=== PATIENT | male | born 1950 | race Caucasian/White ===

== ENCOUNTER 2016-08-19 13:19 | Emergency (ER) | payer MEDICAID ==
[2016-07-26 13:53] VITALS: BMI 24.8
[~2016-08-19 13:19] MED LIST: ASPIRIN325 MG PO; BENADRYL25 MG PO; CELEXA40 MG PO; CIPROFLOXACIN750 MG PO; COREG 3.1253.125 MG PO; DOXYCYCLINE HY100 M2 PO; FARXIGA10 MG PO; FLAGYL500 MG PO; GLIPIZIDE10 MG PO; GLUCOPHAGE500 MG PO; K-TAB10 MEQ PO; LASIX20 MG PO; LEVAQUIN500 MG PO; LIPITOR20 MG PO; LISINOPRIL2.5 MG PO; OXYCODONE HCL5 MG PO; SANTYL30 GM TP; SEROQUEL25 MG PO; SEROQUEL50 MG PO; VANCOMYCIN H1 G/VIA1 IV
[2016-08-19 14:18] LABS: BASOPHILS 0.1 % (0.0-2.0); EOSINOPHILS 6.5 % (0-7); HEMATOCRIT 45.1 % (42.0-54.0); HEMOGLOBIN 14.4 g/dL (13.5-17.5); IMMATURE GRANULOCYTES 0.3 % (0-5); LYMPHOCYTES 19.4 % (15-50); MCH 30.5 pg (26.0-34.0); MCHC 31.9 g/dL (31.0-37.0); MCV 95.6 fL (80.0-100.0); MONOCYTES 8.7 % (2-11); PLATELET COUNT 158 10x3/uL (130-400); RBC 4.72 10x6/uL (4.20-6.10); RDW 13.1 % (11.5-14.5); WBC 7.9 10x3/uL (4.8-10.8)
[2016-08-19 14:31] LABS: ALBUMIN 4.2 g/dL (3.4-5.0); ANION GAP 12.7 mmol/L (8-16); BILIRUBIN - TOTAL 0.87 mg/dL (0.2-1.3); CALCIUM 9.5 mg/dL (8.5-10.1); CREATININE - SERUM 1.4 mg/dL (0.6-1.3); POTASSIUM - SERUM 4.7 mmol/L (3.5-5.1)
== END 2016-08-19 15:08 | disposition home or self-care (01) ==
LOC: D.ER 13:19
PROVIDERS: Family Medicine
DX: L03.115 Cellulitis of right lower limb (principal); E11.621 Type 2 diabetes mellitus with foot ulcer

== ENCOUNTER 2017-04-03 10:49 | Inpatient (IN) | payer MEDICARE ==
[~2017-04-03] VITALS: Ht 185.4 cm; Wt 82.6 kg
--- NOTE | ~2017-04-03 | OP ---
PATIENT NAME: CONSTANTINO CHAVEZ MEDICAL RECORD: [id number] :52 LOCATION:[id number] ADMISSION DATE:04/03/17 SURGEON: AIMEE GONCALVES MD DATE OF OPERATION: 04/05/2017 PREOPERATIVE DIAGNOSIS: Osteomyelitis of the right foot stump with cellulitis. POSTOPERATIVE DIAGNOSIS: Osteomyelitis of the right foot stump with cellulitis. PROCEDURES: 1. Irrigation and debridement to include skin, subcutaneous tissue, portions of fat, fascia, muscle and substantial amount of bone of the right foot. 2. Application of wound VAC. 3. Application of the Neox Thuan. SURGEON: Aimee Goncalves MD ANESTHESIA: General. INTRAOPERATIVE COMPLICATIONS: None. SUMMARY OF PATHOLOGIC FINDINGS: The patient's area of osteomyelitis in question on the MRI was debrided back to heart cortical cancellous bone to the point where I felt like I debrided most, if not all, of the osteomyelitic areas as seen on the MRI. All tissue was cut away. The patient had a sinus tract toward the medial aspect of the foot. This was opened and debrided as well using a curette. Cultures were taken at the beginning of the case. OPERATIVE SUMMARY IN DETAIL: After obtaining the appropriate preoperative orthopedic surgery, consent as well as anesthetic consultation, evaluation and clearance, the patient was brought to the operating room and placed on the operating table in supine position. After general laryngeal mask was administered, the right lower extremity was prepped and draped in routine sterile fashion. Expressed purulence was then cultured in triplicate. At this point, scalpel was utilized to debride the ring of tissue. This was followed by curettage and debridement down to the level of the bone which was carried out. The bone was very soft. This was in keeping with the area of osteomyelitis as seen on the MRI. This was then debrided in its entirety representing the distal aspect of the cuboid. This was all taken down and then the cortical portion was rongeured off to what I felt like was normal bleeding cancellous bone. The small area on the side of the sinus tract was opened up and a curettage was utilized to take down muscle fat and fascia as well as the lateral edge of the bone of the cuboid. I do not think this tracks back into his calcaneocuboid joint. Further generalized debridement was also carried out with a curettage about the wound. At this point, copious bulb syringe was utilized for irrigation. A 100 mg of Neox Thuan was placed into the wound. This was then covered by a nonstick Adaptic followed by the silver sponge, followed by application of wound VAC. Having completed this, the other 2 minor wounds were covered with sterile gauze. This was then wrapped in its entirety with Kerlix dressing followed by an Joao bandage. The wound VAC was placed on continuous 125 medium. The patient was awakened, taken to recovery room in stable condition. All final needle and sponge counts were correct. TRANSINT:[id number] Voice Confirmation ID: [id number] DOCUMENT ID: [id number] OPERATIVE REPORT [id number] CNOSTANTINO CHAVEZ MD, AIMEE WILLSON CC: [id number] DICTATION DATE: 04/06/171705 MARKETING PLANNER: 04/07/172051 ADM IN [facility] [address] [place] [address]
--- NOTE | 2017-04-03 11:30 | NUR ---
RECEIVED TO ROOM 2202 FROM 'S OFFICE VIA WHEELCHAIR. ALERT AND ORIENTED AND SELF AMBULATORY. ORIENTED PT TO ROOM AND CALL LIGHT. WILL CONTINUE WITH PLAN OF CARE.
[2017-04-03] MEDS ORDERED: SANTYL30 GM TP (11:55)
[2017-04-03 12:03] LABS: BASOPHILS 0.1 % (0-2); EOSINOPHILS 1.4 % (0-7); HEMATOCRIT 40.9 % (42.0-54.0); HEMOGLOBIN 13.6 g/dL (13.5-17.5); IMMATURE GRANULOCYTES 0.1 % (0-5); LYMPHOCYTES 14.3 % (15-50); MCH 30.5 pg (26.0-34.0); MCHC 33.3 g/dL (31.0-37.0); MCV 91.7 fL (80.0-100.0); MEAN PLATELET VOLUME 11.7 fL (7.4-10.4); MONOCYTES 10.7 % (2-11); NEUTROPHILS 73.4 % (40-80); RBC 4.46 10x6/uL (4.20-6.10); RDW 12.6 % (11.5-14.5); WBC 8.1 10x3/uL (4.8-10.8)
[2017-04-03 12:06] LABS: PLATELET COUNT 210 10x3/uL (130-400)
[2017-04-03 12:18] LABS: ANION GAP 12.7 mmol/L (8-16); C-REACTIVE PROTEIN 6.3 mg/dL (0.0-0.9); CALCIUM 9.1 mg/dL (8.5-10.1); CARBON DIOXIDE 29.4 mmol/L (21.0-32.0); CREATININE - SERUM 1.4 mg/dL (0.6-1.3); POTASSIUM - SERUM 4.1 mmol/L (3.5-5.1)
[2017-04-03 12:23] LABS: HEMOGLOBIN A1C 8.3 % (4.8-6.0)
[2017-04-03 13:00] VITALS: BP 135/60; BMI 24.0
--- NOTE | 2017-04-03 13:08 | NUR ---
SCHEDULED MEDICATIONS ADMINISTERED AT THIS TIME. PROVIDED PT WITH URINAL FOR STRICT I&O. CALL LIGHT IN REACH, WILL CONTINUE WITH PLAN OF CARE.
[2017-04-03 13:42] LABS: ERYTHROCYTE SEDIMENTATION RATE 31 mm/hr (0-20)
[2017-04-03 16:14] VITALS: BP 128/57
[2017-04-03 20:00] VITALS: BP 133/56
--- NOTE | 2017-04-03 20:20 | NUR ---
PT HR WAS AT 131 ACCORDING TO CANNON CREWMEMBER, WENT AND PUT A PULSE OX ON PT, PT HR IS AT 128, CALLED DR HASSAN IN REGARDS TO HR. 5MG METROPOLOL ORDERED AND EKG. WILL CONTINUE TO MONITOR PT
[2017-04-04] VITALS (7 sets, daily range): BP systolic 114–135; BP diastolic 56–62; Ht 185.4 cm; Wt 82.6 kg
[2017-04-04 06:20] LABS: BASOPHILS 0.2 % (0-2); HEMATOCRIT 36.5 % (42.0-54.0); IMMATURE GRANULOCYTES 0.2 % (0-5); LYMPHOCYTES 18.8 % (15-50); MCH 30.2 pg (26.0-34.0); MCHC 32.9 g/dL (31.0-37.0); MCV 91.7 fL (80.0-100.0); MEAN PLATELET VOLUME 11.6 fL (7.4-10.4); MONOCYTES 16.5 % (2-11); NEUTROPHILS 62.3 % (40-80); PLATELET COUNT 173 10x3/uL (130-400); RBC 3.98 10x6/uL (4.20-6.10); RDW 12.5 % (11.5-14.5); WBC 6.6 10x3/uL (4.8-10.8)
[2017-04-04 06:39] LABS: CALCIUM 8.5 mg/dL (8.5-10.1); CARBON DIOXIDE 24.7 mmol/L (21.0-32.0); CHLORIDE - SERUM 104 mmol/L (98-107); POTASSIUM - SERUM 3.7 mmol/L (3.5-5.1); SODIUM 139 mmol/L (136-145); eGFR NON AFRICAN AMERICAN 80 mL/min (90-120)
[2017-04-04 06:47] LABS: CALC OSMOLALITY 277 mosm/kg (275-300); GLUCOSE 76 mg/dL (74-106); UREA NITROGEN 16 mg/dL (7-18)
--- NOTE | 2017-04-04 08:04 | NUR ---
SCHEDULED MEDICATIONS ADMINISTERED AT THIS TIME. DENIES NEEDS OR PAIN. CALL LIGHT IN REACH, WILL CONTINUE WITH PLAN OF CARE.
--- NOTE | 2017-04-04 13:40 | NUR ---
DRESSING CHANGE PERFORMED PER ORDERS WITH ASSISTANCE OF PANFILO BRIDGES WITH WOUND CARE. SEE WOUND CARE NOTE.
--- NOTE | 2017-04-04 14:34 | NUR ---
Wound care consult: Assisted Primary RN with dressing change. Medial distal foot has open wound measuring 3.5cm x 4cm x 0.5cm x 3.5cm @ 6:00 Mid plantar wound measures 3cm x 2cm x 0.4cm Lateral most wound measures 2cm x 1.5cm x 0.5cm Wounds were cleansed with wound boiler cleaner. Medial wound tunnel was packed with 1/4" iodoform gauze, wound bed was covered with 4x4 saturated with NS and dry 4x4 to cover. Secured with kerlix and SHANNA wrap.
--- NOTE | 2017-04-04 15:31 | NUR ---
TAKEN TO MRI AT THIS TIME. WILL MONITOR PT WHEN SHE RETURNS TO 2202.
--- NOTE | 2017-04-04 23:23 | NUR ---
PATIENT IS RESTING QUIETLY WITH EYES CLOSED. NO SIGNS OF DISTRESS NOTED. BED IN LOWEST POSITION, CALL LIGHT IN REACH. BED RAILS UP X'S 2.
[2017-04-05 04:00] VITALS: BP 121/55
--- NOTE | 2017-04-05 09:08 | NUR ---
AWAKE AND ALERT.ORIENTED X3. NO C/O AT THIS TIME. DR. GONCALVES HERE TOOK DRESSING OFF RIGHT FOOT. COVERED WITH 4X4 AND KERLEX. LUNGS ARE CLEAR BILATERALLY, NO COUGH NOTED. SKIN IS INTACT WITHOUT REDNESS EXCEPT DESCRIBED TO RIGHT FOOT. IV TO LEFT FOREARM IS PATNET WITHOUT REDNESS AT INSERTION SITE. DENIES NEEDS.
--- NOTE | 2017-04-05 09:30 | NUR ---
Patient Name: CONSTANTINO CHAVEZ Admission Status: Urgent Accout number: [id number] Admission Date: 04-03-2017 : 1950 Admission Diagnosis: Attending: ALINA BANERJEE Current LOS: 2 Anticipated DC Date: Planned Disposition: Home Primary Insurance: MEDICARE A & B Discharge Planning Comments: CM met with patient to assess discharge planning needs. Patient states that he lives independently at home with Jerod Kinsey, who will be his regional otr company driver home. He has used [facility] in the past, but is not current with them. He would like to use them again if needed. Patient has crutches and a script of a walker. Patient has also been going to wound care clinic. CM will continue to follow and assist as needed. PCP: Lavonne Kinsey ([phone]) Lead Caster: Soniya Busby * Is the patient Alert and Oriented? Yes 0 * How many steps to enter\exit or inside your home? 8 0 * PCP [facility] 0 * [facility]acy [facility] [place] [facility] * Preadmission Environment Home with Family 0 * ADLs Independent 0 * Equipment Crutch Walker 0 * List name and contact numbers for known caregivers / representatives who currently or will assist patient after discharge: JEROD KINSEY ([phone]) 0 * Community resources currently utilized None 0 * Additional services required to return to the preadmission environment? No 0 * Can the patient safely return to the preadmission environment? Yes 0 * Has this patient been hospitalized within the prior 30 days at any hospital? No 0 Grand Total: 0
[2017-04-05 10:19] VITALS: BP 143/67
--- NOTE | 2017-04-05 12:00 | NUR ---
FSBS 65. WILL MONIOTOR SINCE NPO FOR SURGERY,.
[2017-04-05 13:28] VITALS: BP 124/56
--- NOTE | 2017-04-05 13:50 | NUR ---
C/O SEEING BLACK SPOTS. STATED I THINK MY SUGAR IS LOW. GIVEN 1 ML OF GLUCOGON. WILL MONITOR. GLUCOSE LEVELS.
--- NOTE | 2017-04-05 14:29 | NUR ---
FSBS 134 AT THIS TIME. WILL CONTINUE TO MONITOR.
[2017-04-05 18:10] VITALS: BP 123/51
--- NOTE | 2017-04-05 18:56 | NUR ---
PATIENT PREPPED FOR SURGERY. DENIES NEEDS.
--- NOTE | 2017-04-05 19:15 | NUR ---
PT RECEIVED PREOP MEDS, STILL PENDING SURGERY. PT IS LYING ON BACK EYES DIRECTED AT TELEVISION STATED NO OTHER NEEDS AT THIS TIME
[2017-04-05 20:00] VITALS: BP 140/68
--- NOTE | 2017-04-05 20:32 | NUR ---
PT IS VERY UPSET STILL NOT BEEN TO SURGERY, PT STATED KNOWS BLOOD SUGAR IS VERY LOW AND IF NO SURGERY THAN HE WANTS TO EAT, CALLED OR AND SPOKE WITH MAGALYS AND INFORMED OF PT STATEMENT. PER DR GONCALVES, IF [place] WANTS TO EAT LET HIM AND SURGERY WILL BE DONE NEXT AFTERNOON. GAVE PT TWO SANDWICHES AND A DIET SODA, ADVISED NPO AFTER MIDNIGHT
[2017-04-05 23:37] VITALS: BP 115/57
--- NOTE | 2017-04-06 01:37 | NUR ---
PT IS LYING IN BED, BANDAGE ON RT FOOT HAS COME OFF, BLEEDING AND IS ALL OVER BED, CLEANED AND REDRESSED WOUND. WILL CONTINUE TO MONITOR PT
--- NOTE | 2017-04-06 02:00 | NUR ---
PATIENT RESTING WITH EYES CLOSED AND NO VISIBLE SIGNS OF DISTRESS. BED IN LOWEST POSITION AND CALL LIGHT WITHIN REACH.
[2017-04-06 04:00] VITALS: BP 127/63
--- NOTE | 2017-04-06 07:52 | NUR ---
PATIENT IN BED LAYING ON LEFT SIDE AT THIS TIME. NO COMPLAINTS. STATED JUST WAITING FOR SURGERY TO BE DONE. IV INTACT. CALL LIGHT WITHIN REACH.
--- NOTE | 2017-04-06 07:53 | NUR ---
PATIENT IN BED WITH NO COMPLAINTS. TRYING TO TAKE GOWN OFF. HELPED PATIENT PUT IT BACK ON. STATED NO NEEDS AT THIS TIME. BED ALARM ON. CALL LIGHT WITHIN REACH.
[2017-04-06 09:23] VITALS: BP 128/47
--- NOTE | 2017-04-06 12:00 | NUR ---
PATIENT SITTING UP IN BED AWAITING OR. NO COMPLAINTS. CALL LIGHT WITHIN REACH.
[2017-04-06 13:23] VITALS: BP 135/57
--- NOTE | 2017-04-06 14:15 | NUR ---
PATIENT AT THE DESK AT THIS TIME COMPLAING BC PATIENT HAD NOT GONE TO OR YET AND THEY TOLD THEM HE WOULD GO AT 1400. EXPLAINED THAT IT MAY TAKE A LITTLE LONGER BC 1400 IS ONLY AN ESTIMATED TIME. THEY CAN NOT GIVEN HER A EXACT TIME. VERBALIZED UNDERSTANDING BUT STILL NOT SATISFIED.
--- NOTE | 2017-04-06 14:30 | NUR ---
PATIENT TO OR.
--- NOTE | 2017-04-06 17:45 | NUR ---
PATIENT BACK TO ROOM AT THIS TIME. VS STABLE. NO COMPLAINTS OR SIGNS OF DISTRESS. PATIENT DEMANDING TO EAT RIGHT NOW. EXPLAINED TO PATIENT TO LET ME TAKE BS FIRST. VERBALIZED UNDERSTANDING. BS 159. REFUSED INSULIN. TRAY GIVEN TO PATIENT. IV INTACT. FAMILY AT BEDSIDE.
[2017-04-06 17:48] VITALS: BP 134/67
--- NOTE | 2017-04-06 18:15 | NUR ---
PATIENT SITTING UP IN BED ASKING FOR MORE FOOD. FOOD ORDERED TO KITCHEN AT THIS TIME. PATIENT VS STABLE. NO COMPLAINTS. CALL LIGHT WITHIN REACH. IV INTACT.
--- NOTE | 2017-04-06 18:45 | NUR ---
PATIENT RECIEVED ORAL DIABETIC MEDS. PATIENT SITTING UP IN BED EATING SANDWICH AND CHIPS WITH NO COMPLAINTS. IV INTACT. NO SIGNS OF DISTRESS, VS STABLE. CALL LIGHT WITHIN REACH. REPORT GIVEN TO NIGHT NURSE.
--- NOTE | 2017-04-06 19:30 | NUR ---
AWAKE,PATIENT IS HAVING UNCONTROLABLE SHAKING. TEMP. 98.4. BP100/77 P 165. cOMPLAINS OF FREEZING. WARM BLANKETS APPLIED. DR ARIZMENDI ON UNIT. NEW ORDERS RECIEVED FOR TELEMENTRY. PLACED AND SHOWS SR HR 76. NORCO GIVEN FOR PAIN. WILL OBSERVE.
[2017-04-06 20:00] VITALS: BP 129/62
--- NOTE | 2017-04-06 22:30 | NUR ---
RESTING QUIETLY. NO DISTRESS NOTED. "FEELING BETTER" CL IN REACH
--- NOTE | 2017-04-06 23:49 | NUR ---
TEMP 102.8, DR GONCALVES NOTIFIED [facility] NEW ORDERS RECIEVED. ALSO NOTIFIED OF CULTURE RESULTS.
[2017-04-07] VITALS: BP 110/54
--- NOTE | 2017-04-07 00:39 | NUR ---
TEMP 101.9. NO DISTRESS NOTED. CL IN REACH
--- NOTE | 2017-04-07 03:21 | NUR ---
CONTACT ISOLATION. PT RESTING QUIETLY, EYES CLOSED. RESP EASY, UNLABORED. NO DISTRESS NOTED. CONTINUE DRY COLOR TESTER'S PLAN OF CARE.
[2017-04-07 04:00] VITALS: BP 114/62
--- NOTE | 2017-04-07 05:18 | NUR ---
AROUSES EASIY. NO DISTRESS NOTED. CL IN REACH.
[2017-04-07 06:38] LABS: BASOPHILS 0.1 % (0-2); HEMATOCRIT 35.8 % (42.0-54.0); HEMOGLOBIN 11.6 g/dL (13.5-17.5); IMMATURE GRANULOCYTES 0.3 % (0-5); LYMPHOCYTES 8.4 % (15-50); MCH 29.9 pg (26.0-34.0); MCHC 32.4 g/dL (31.0-37.0); MCV 92.3 fL (80.0-100.0); MEAN PLATELET VOLUME 10.9 fL (7.4-10.4); MONOCYTES 10.4 % (2-11); NEUTROPHILS 78.8 % (40-80); PLATELET COUNT 152 10x3/uL (130-400); RBC 3.88 10x6/uL (4.20-6.10); RDW 12.5 % (11.5-14.5)
[2017-04-07 06:48] LABS: ANION GAP 11.4 mmol/L (8-16); CALCIUM 8.2 mg/dL (8.5-10.1); CARBON DIOXIDE 26.4 mmol/L (21.0-32.0); CREATININE - SERUM 1.3 mg/dL (0.6-1.3); POTASSIUM - SERUM 3.8 mmol/L (3.5-5.1)
[2017-04-07 07:15] VITALS: BP 121/51
--- NOTE | 2017-04-07 07:25 | NUR ---
REPORT RECIEVED, ASSUMED CARE OF PT. CONTACT ISOLATION PRECAUTIONS IN PLACE. PT SLEEPING, EYES SHUT, EASILY AROUSED. NO SIGNS OF ACUTE DISTRESS. BED IN LOWEST POSITION, SIDE RAILS UP X 2, CALL LIGHT WITHIN REACH.
[2017-04-07 11:00] VITALS: BP 115/60
[2017-04-07 15:15] VITALS: BP 124/57
--- NOTE | 2017-04-07 18:46 | NUR ---
PT RESTING IN ROOM. NO COMPLAINTS AT THIS TIME. BED IN LOWEST POSITION, SIDE RAILS UP X 2, CALL LIGHT WITHIN REACH.
[2017-04-07 20:00] VITALS: BP 124/52
--- NOTE | 2017-04-07 20:01 | NUR ---
REC'D LYING SUPINE IN BED AWAKE AND ALERT. RESP EVEN AND UNLABORED WITH NO DISTRESS NOTED. CAN VOICE NEEDS AND WANTS. NO C/O NOTED OR VOICE AT THIS TIME. ASSESSMENT COMPLETED. C/L IN REACH AT BEDSIDE.
--- NOTE | 2017-04-07 20:21 | NUR ---
IN CONTACT ISOLATION, ISOLATION PRECAUTIONS MAINTAINED. PATIENT IS LAYING IN BED WATCHING TV. WOUND VAC TO LEFT FOOT AMPUTAION. SHANNA WRAP AROUND FOOT. RESPIRATIONS ARE EVEN AND UNLABORED, NO SIGNS OF DISTRESS NOTED.
--- NOTE | 2017-04-07 22:29 | NUR ---
THIS NURSE WAS INFORMED BY CHEF INSTRUCTOR THAT PT INFORMED HER THAT HE DOESN'T WANT TO BE DISTURB FOR VITALS SIGNS, MEDICATION OR LABS UNTIL 0800 ON SUNDAY MORNING. PT IV HAD INFILTRATED BUT REFUSED TO LET THIS NURSE RESTART IV STATING THAT " THEY CAN RESTART IT IN THE MORNING." THIS NURSE INFORMED CHARGE NURSE OF PT REFUSAL OF RESTARTING HIS IV, MEDICATIONS AND AM LABS. PT HAS AN FEVER OF 101.0 WAS MEDICATED WITH APAP PER ORDERS. WILL CONTINUE TO OBSERVE FOR NEEDS. C/L IN REACH BEDSIDE.
[2017-04-08 04:39] LABS: BASOPHILS 0.1 % (0-2); EOSINOPHILS 2.3 % (0-7); HEMATOCRIT 34.9 % (42.0-54.0); HEMOGLOBIN 11.7 g/dL (13.5-17.5); IMMATURE GRANULOCYTES 0.3 % (0-5); LYMPHOCYTES 22.1 % (15-50); MCH 30.6 pg (26.0-34.0); MCHC 33.5 g/dL (31.0-37.0); MCV 91.4 fL (80.0-100.0); MEAN PLATELET VOLUME 10.8 fL (7.4-10.4); MONOCYTES 16.5 % (2-11); NEUTROPHILS 58.7 % (40-80); PLATELET COUNT 158 10x3/uL (130-400); RBC 3.82 10x6/uL (4.20-6.10); RDW 12.4 % (11.5-14.5); WBC 7.1 10x3/uL (4.8-10.8)
[2017-04-08 04:48] LABS: ANION GAP 11.3 mmol/L (8-16); CALCIUM 8.6 mg/dL (8.5-10.1); CARBON DIOXIDE 25.8 mmol/L (21.0-32.0); CREATININE - SERUM 1.2 mg/dL (0.6-1.3)
[2017-04-08 04:50] LABS: POTASSIUM - SERUM 3.1 mmol/L (3.5-5.1)
--- NOTE | 2017-04-08 07:10 | NUR ---
RECEIVED REPORT, ASSUMED CARE OF PT. RESTING IN ROOM, EYES CLOSED. PT WITHOUT IV, REFUSES AT THIS TIME. WILL RE-SITE.
[2017-04-08 09:40] VITALS: BP 95/55
[2017-04-08 12:46] VITALS: BP 110/64
[2017-04-08 16:26] VITALS: BP 111/61
--- NOTE | 2017-04-08 18:47 | NUR ---
PT RESTING IN ROOM, NO COMPLAINTS AT THIS TIME. BED IN LOWEST POSITION, SIDE RAILS UP X 2, CALL LIGHT WITHIN REACH.
--- NOTE | 2017-04-08 19:56 | NUR ---
NO CHANGES NOTED AT THIS TIME PHYSICALLY OR MENTALLY. RESP EVEN AND UNLABORED WITH NO DISTRESS NOTED. CAN EXPRESS NEEDS AND WANTS. ASSESSMENT COMPLETED. C/L IN REACH AT BEDSIDE.
[2017-04-08 20:00] VITALS: BP 137/68
--- NOTE | 2017-04-09 03:16 | NUR ---
RESTING WELL AT THIS TIMEVNO C/O NOTED OR VOICED. C/L IN REACH AT BEDSIDE.
--- NOTE | 2017-04-09 03:49 | NUR ---
RN NOTE: PT LYING IN SUPINE POSITION WITH EYES CLOSED AND UNLABORED BREATHING. IV IN RIGHT FA PATENT WITH NS INFUSING AT 75 ML / HR. TELEMETRY IN PLACE. ELEVATED TEMP OFF AND ON ALL SHIFT. WILL CONTINUE TO MONITOR FOR NEEDS. CALL LIGHT WITHIN REACH.
--- NOTE | 2017-04-09 07:35 | NUR ---
ASSESSMENT PER FLOW SHEET.PT WITHOUT DISTRESS.HE WISHES NOT TO BE DISTURBED TILL AFTER 0900.HE DENIES PAIN AT PRESENT.WOUND VAC IN PLACE TO RIGHT LOWER LEG FROM FOOT AMP. ISOLATION MAINTAINED.CALL LIGHT IN REACH
[2017-04-09 08:09] VITALS: BP 142/69
--- NOTE | 2017-04-09 09:27 | NUR ---
WOUND VAC ORDER AND INFO SENT TO FACUNDO AT [facility]
--- NOTE | 2017-04-09 09:49 | NUR ---
ATTEMPTED TO SET UP HH WITH [facility], BUT THEY STATED THAT THEY COULD NOT ACCEPT THE PATIENT BECAUSE HE WAS NOT HOMEBOUND. THEY HAVE HAD SANDOR MULTIPLE TIMES AND HAVE HAD TO DICHARGE HIM B/C HE WAS NOT AT HOME PER MIROSLAVA. REFERRAL SENT TO [facility] AND SPOKE WITH SENTHIL
--- NOTE | 2017-04-09 11:55 | NUR ---
FSBS 149
[2017-04-09 12:07] VITALS: BP 136/68
--- NOTE | 2017-04-09 13:05 | NUR ---
NUTRITION F/U CHART REVIEWED. PT REMAINS IN ISOLATION. TOLERATING ADA DIET. WILL CONTINUE TO TO PROVIDE DIET, MONITOR PT PROGRESS. RD FOLLOWING
--- NOTE | 2017-04-09 15:45 | NUR ---
BATH AND BED CHANGE COMPLETE.PT WITHOUT NEEDS.
[2017-04-09 16:06] VITALS: BP 132/66
--- NOTE | 2017-04-09 16:58 | NUR ---
WOUND VAC DRESSING CHANGE WOUND TYPE: SURGICAL WOUND LOCATION: RIGHT FOOT WOUND AGE IN MONTHS: DEBRIDEMENT ATTEMPTED IN LAST 10 DAYS? DATE/TYPE: SERIAL DEBRIDEMENTS REQUIRED? MEASUREMENT DATE: 04/09/17 3CM X 5.5CM X 1.5CM FULL THICKNESS? YES MUSCLE, TENDON OR BONE EXPOSED? MUSCLE UNDERMINING? NO TUNNELING/SINUS? NO APPEARANCE OF WOUND BED : RED EXUDATE (AMOUNT, COLOR, ODOR): SMALL SANGUINOUS - MILD ODOR FOAM TYPE: BLACK # OF PIECES USED: 1 PIECE EDUCATION: WOUND VAC CHANGES -W- PT TOLERATED WELL
[2017-04-09 19:00] VITALS: BP 159/65
--- NOTE | 2017-04-09 19:35 | NUR ---
PATIENT RESTING IN BED ON THE PHONE AND DENIES NEEDS AT THIS TIME. BED IN LOWEST POSITION AND CALL LIGHT WITHIN REACH. ENCOURAGED THE PATIENT TO CALL IF HE HAS NEEDS.
[2017-04-10 06:47] LABS: BASOPHILS 0.3 % (0-2); EOSINOPHILS 3.2 % (0-7); HEMATOCRIT 35.1 % (42.0-54.0); HEMOGLOBIN 11.4 g/dL (13.5-17.5); IMMATURE GRANULOCYTES 0.3 % (0-5); MCH 29.5 pg (26.0-34.0); MCHC 32.5 g/dL (31.0-37.0); MCV 90.9 fL (80.0-100.0); MEAN PLATELET VOLUME 11.4 fL (7.4-10.4); MONOCYTES 13.8 % (2-11); NEUTROPHILS 65.4 % (40-80); PLATELET COUNT 187 10x3/uL (130-400); RBC 3.86 10x6/uL (4.20-6.10); RDW 12.4 % (11.5-14.5)
[2017-04-10 07:24] LABS: CALC OSMOLALITY 281 mosm/kg (275-300); CALCIUM 8.2 mg/dL (8.5-10.1); CARBON DIOXIDE 27.1 mmol/L (21.0-32.0); CHLORIDE - SERUM 106 mmol/L (98-107); CREATININE - SERUM 0.9 mg/dL (0.6-1.3); POTASSIUM - SERUM 3.7 mmol/L (3.5-5.1); SODIUM 143 mmol/L (136-145); UREA NITROGEN 10 mg/dL (7-18); eGFR NON AFRICAN AMERICAN 90 mL/min (90-120)
[2017-04-10 07:27] LABS: GLUCOSE 63 mg/dL (74-106)
--- NOTE | 2017-04-10 08:00 | NUR ---
ASSESSMENT PER FLOW SHEET.PT WITHOUT DISTRESS.DENIES NEEDS AT PRESENT.DRESSING TO RLE CLEAN DRY AND INTACT.WOUND VAC IS WORKING PROPERLY.CALL LIGHT IN REACH
[2017-04-10 08:58] VITALS: BP 136/60
--- NOTE | 2017-04-10 09:00 | NUR ---
REFUSES AM MEDS AT TIS TIME. STATES HE DID NOT EAT BREAKFAST AND WANTS MEDS AT LUNCH TIME.
--- NOTE | 2017-04-10 10:26 | NUR ---
REFUSES PICC PLACEMENT AT THIS TIME PER ADRIANA VERDIN RN, VASCULASR NURSE.REQUEST HER TO COME BACK SOME TIME AFTER NOON.
[2017-04-10 13:07] VITALS: BP 138/67
--- NOTE | 2017-04-10 13:15 | NUR ---
AGREEABLE TO MEDS NOW,BUT DECLINES BLOOD SSUGAR CHECK.ALSO DECLINES LABS AT PRESENT.WAITING ON XRAY FOR PICC PLACEMENT CONFIRMATION.
--- NOTE | 2017-04-10 15:26 | NUR ---
IV LEAKING IN LEFT FOREARM.IV DCD WITH CATH INTACT.
--- NOTE | 2017-04-10 15:30 | NUR ---
PICC OK TO USE PER ADRIANA PEREZ R.N. VASCULAR NURSE.
[2017-04-10 15:41] VITALS: BP 134/66
--- NOTE | 2017-04-10 19:35 | NUR ---
PATIENT RESTING IN BED AND DENIES NEEDS AT THIS TIME. BED IN LOWEST POSITION AND CALL LIGHT WITHIN REACH. ENCOURAGED THE PATIENT TO CALL IF HE HAS NEEDS.
--- NOTE | 2017-04-10 19:50 | NUR ---
REC'D PATIENT FROM REC[facility]ERY. PATIENT'S VITALS ARE WNL AND PATIENT HAS NO VISIBLE SIGNS OF DISTRESS. FAMILY AT BEDSIDE. PATIENT DENIES NEEDS AT THIS TIME. BED IN LOWEST POSITION AND CALL LIGHT WITHIN REACH. ENCOURAGED THE PATIENT TO CALL IF HE HAS NEEDS.
--- NOTE | 2017-04-10 20:45 | NUR ---
PATIENT REFUSED FINGER STICK FOR BLOOD GLUCOSE TEST
[2017-04-11] VITALS: BP 121/55
[2017-04-11 06:00] LABS: BASOPHILS 0.2 % (0-2); EOSINOPHILS 3.4 % (0-7); HEMATOCRIT 36.4 % (42.0-54.0); HEMOGLOBIN 12.2 g/dL (13.5-17.5); IMMATURE GRANULOCYTES 0.2 % (0-5); LYMPHOCYTES 19.5 % (15-50); MCH 30.2 pg (26.0-34.0); MCHC 33.5 g/dL (31.0-37.0); MCV 90.1 fL (80.0-100.0); MEAN PLATELET VOLUME 11.3 fL (7.4-10.4); MONOCYTES 14.7 % (2-11); PLATELET COUNT 167 10x3/uL (130-400); RBC 4.04 10x6/uL (4.20-6.10); RDW 12.4 % (11.5-14.5)
[2017-04-11 06:19] LABS: WBC 4.8 10x3/uL (4.8-10.8)
[2017-04-11 06:26] LABS: CALC OSMOLALITY 280 mosm/kg (275-300); CALCIUM 8.3 mg/dL (8.5-10.1); CARBON DIOXIDE 26.2 mmol/L (21.0-32.0); CHLORIDE - SERUM 105 mmol/L (98-107); CREATININE - SERUM 0.9 mg/dL (0.6-1.3); POTASSIUM - SERUM 3.3 mmol/L (3.5-5.1); SODIUM 140 mmol/L (136-145); UREA NITROGEN 10 mg/dL (7-18); eGFR NON AFRICAN AMERICAN 90 mL/min (90-120)
[2017-04-11 06:28] LABS: GLUCOSE 158 mg/dL (74-106)
--- NOTE | 2017-04-11 07:00 | NUR ---
PT REC'D FROM PANFILO YANG. RESTING IN BED WITH EYES CLOSED. EASILY AROUSED. AAOX4. NO COMPLAINTS OF PAIN. REGULAR HEART RATE AND RHYTHM. LUNG SOUNDS CLEAR AND EQUAL BILAT. BOWEL SOUNDS ACTIVE X4 QUADS. WOUND VAC TO R FOOT. X2 PEDAL PULSES BILAT. L UPPER ARM PICC FREE OF REDNESS AND SWELLING. BED LOW, CALL LIGHT IN REACH, DENIES NEEDS. CPOC.
[2017-04-11 08:36] VITALS: BP 114/45
--- NOTE | 2017-04-11 08:55 | NUR ---
MORNING MEDS PASSED AT THIS TIME. FRESH WATER PROVIDED. BED LOW, CALL LIGHT IN REACH, DENEIS NEEDS. CPOC.
--- NOTE | 2017-04-11 11:08 | NUR ---
WOUND VAC DRESSING CHANGE WOUND TYPE: Surgical : #1 right foot great toe amp site Chronic wound: #2 Mid plantar Chronic wound: #3 Lateral plantar WOUND LOCATION: see above WOUND AGE IN MONTHS: unknown DEBRIDEMENT ATTEMPTED IN LAST 10 DAYS? DATE/TYPE: SERIAL DEBRIDEMENTS REQUIRED? unknown MEASUREMENT DATE: 04/11/17 #1 3.5cm x 6cm x 1.2cm #2 2.5cm x 1.5cm x 0.2cm #3 2cm x 2cm x 0.5cm FULL THICKNESS? #1 yes MUSCLE, TENDON OR BONE EXPOSED? no UNDERMINING? no TUNNELING/SINUS? no APPEARANCE OF WOUND BED : #1 80% red/beefy 20% brown necrotic #2 red #3 pale pink shiny EXUDATE (AMOUNT, COLOR, ODOR): serosanguinous, small, slight odor FOAM TYPE: black # OF PIECES USED: 5 pieces total (1 piece on each wound (3) + 1 for pig tail + 1 for trac pad = 5 total) EDUCATION: -125mmhg mod continuous
--- NOTE | 2017-04-11 11:58 | NUR ---
REFUSING FSBS. STATES, "I CAN JUST DO IT AT HOME." EXPLAINED THE IMPORTANCE OF MONITORING BLOOD SUGARS, BUT PT ADRIANA CHOOSES TO REFUSE. BED LOW, CALL LIGHT IN REACH, DENIES NEEDS. CPOC.
[2017-04-11] MEDS ORDERED: HYDROCODON-ACE1 EAC7 PO (12:16)
--- NOTE | 2017-04-11 13:14 | NUR ---
CM set up iv abx with JAN[facility], spoke with Sarita she stated she would be here today to meet with patient. She quoted me $1305.00 this included medication and supplies. Waiting on [facility] to approve home wound vac. Sara with [facility] notified of patients discharging today. CM will continue to follow and assist
--- NOTE | 2017-04-11 13:50 | NUR ---
PT UNHOOKED FROM IV AND WOUND VAC TO SHOWER. SPOKE WITH AND PT REGARDING DISCHARGE. WANTING TO KNOW WHY IT IS TAKING SO LONG. EXPLAINED TO AND PT THAT ALL DOCTORS HAVE CLEARED HIM TO BE DISCHARGED, BUT WE ARE WAITING FOR HIS WOUND VAC EQUIPMENT TO BE APPROVED. AND PT ARE BOTH UNHAPPY WITH THIS ANSWER. STATE, "WE ARE PERSONAL FRIENDS OF DOCTOR BANERJEE." STATED THAT DR. BANERJEE COULD NOT SPEED THE PROCESS WHEN IT COMES TO THAT.
--- NOTE | 2017-04-11 14:07 | NUR ---
RESTING QUIETLY IN BED. VISITOR IN ROOM. DENIES NEEDS. DRESSING TO RIGHT FOOT DRY AND INTACT.
--- NOTE | 2017-04-11 15:26 | NUR ---
PATIENT BEING DISCHARGED HOME TODAY WITH [facility] AND [facility] TO DO IV ABX. PRICED [facility] VS [facility]. [facility] WAS 1305.00 FOR MEDICATIONS AND SUPPLIES [facility] WAS 2770.00. INFORMATION GIVEN TO PATIENT AND PATIENT PICKED [facility]. [facility] FOR HOME WOUND VAC.
--- NOTE | 2017-04-11 15:30 | NUR ---
ENTERED PT'S ROOM TO ADMINISTER LAST DOSE OF IV ABX BEFORE DISCHARGE AND TO DO PICC LINE DRESSING CHANGE. EXPLAINED TO PT, "WE HAVE YOUR WOUND VAC EQUIPMENT, BUT DR. BANERJEE WANTS YOU TO GET THIS LAST DOSE OF ANTIBIOTICS BEFORE YOU GO HOME BECAUSE THEY WON'T BE ABLE TO DELIEVER YOUR ANTIBIOTICS UNTIL 8 O'CLOCK TOMORROW MORNING." PT STATED, "WELL CAN'T YOU JUST GIVE ME THAT BAG AND I CAN DO IT AT HOME? I'VE DONE IT BEFORE." THEN SPOKE STEPHANIA OWUSU AND SHE STATED THEY COULD DELIVER PT'S FIRST DOSE TONIGHT. EXPLAINED THIS TO PT AND THEN STATED ALL WE WERE WAITING ON WERE HIS DISCHARGE PAPERS TO BE FINISHED. PT STATED, "IF THERE IS NOT A WHEELCHAIR HERE IN 5 MINUTES I WILL WALK OUT OF HERE." EXPLAINED TO PT THAT HE WOULD BE LEAVING AGAINST MEDICAL ADVICE IF THAT WAS THE CASE. PT STATED,"I DON'T CARE! I WILL SIGN WHATEVER I HAVE TO TO GET OUT OF HERE! THIS PLACE HAS BEEN A THREE RING CIRCUS EVER SINCE I CHECKED IN ON SUNDAY!" NOTIFIED PANFILO MARTINEZPAYABLE MANAGER. SHE ATTEMPTED TO EXPLAIN TO PT THAT INSURANCE WOULD NOT COVER THIS STAY OR HIS MEDICAL EQUIPMENT IF HE LEFT AGAINST MEDICAL ADVICE. PT STATES AGAIN, "I DO NOT CARE. I AM LEAVING EITHER IN A WHEELCHAIR OR I WILL WALK OUT OF HERE." PANFILO MCKEON FLOW COORIDINATOR, AND PANFILO FOSTERCOMMUNITY AFFAIRS MANAGER, NOTIFIED. PANFILO MCKEON, PANFILO FOSTER, AND MYSELF ALL ATTEMPTED TO SPEAK TO THE PT CALMLY AND EXPLAIN THE IMPORTANCE OF HIS LAST DOSE OF ABX BEING GIVEN AND REITORATED THAT THIS HOSPITAL STAY WOULD NOT BE COVERED IF HE LEFT AGAINST MEDICAL ADVICE. PT STATES, "I'M NOT A GENIUS! I HAVE AN IQ OF 146, AND A GENIUS IS 150, AND I KNOW THAT THIS IS BULLSHIT! EVER SINCE I CHECKED IN ON SUNDAY THIS HAS BEEN A MESS! I WAS SUPPOSED TO HAVE SURGERY SUNDAY AND IT WAS CANCELLED. THEN I WAS SUPPOSED TO HAVE SURGERY ON SUNDAY AND THEY CAME TO GET ME AT 2130 AND I SAID NO! THIS HAS BEEN RIDICULOUS! I AM A PERSONAL FRIEND OF DR. BANERJEE!" PANFILO MCKEON, TRIED AGAIN TO EXPLAIN THAT HIS MEDICAL EXPENSES WOULD NOT BE COVERED BY INSURANCE IF HE LEFT AMA AND THAT BY THE TIME HIS ABX WOULD BE FINISHED HIS PAPER WORK WOULD BE DONE. PT STATES, "I WILL NOT BE PAYING FOR ANY OF THIS! MY INSURANCE WILL OR YOU PEOPLE WILL! WE HAVE ALL THE NAMES OF THE NURSES WHO WERE INEPT DURING THIS EXPERIENCE AND WE WILL SEE YOU ALL IN COURT!." AMA PAPERS SIGNED AND DR. BANERJEE NOTIFIED.
--- NOTE | 2017-04-11 15:34 | NUR ---
called to patient room per nurse. pt adamanet about leaving without orders recieved from Dr Georges. Wound vac for home placed-spouse at bedside and she was asking pt to stay. He refused-informed pt that insurance may not pay for hospital stay-pt informed me that he didnt care and woudl walk out on surgical foot. AMA form signed and pt left per wheelchair. Dr Georges informed.
--- NOTE | 2017-04-11 16:53 | NUR ---
LATE ENTRY: TIME 3:45 PM. FIDEL THE NURSE FOR MR. CHAVEZ CAME OUT OF ROOM AND STATED HE WAS GOING AMA AND WOULD NOT LET HER HANG HIS ABX. ALICIA WENT TO ROOM WITH NURSE FIDEL AND DISCUSSED THE NEED FOR HIM TO HAVE HIS ABX BEFORE HE LEFT. HE STATED "I AM SICK OF THIS HOSPITAL AND ALL OF YOU. I HAVE LAYED IN POOP AND PISS THIS WHOLE VISIT AND I AM TIRED OF ALL OF YOU LYING TO ME". I EXPLAINED WE NEEDED TO HANG HIS ABX BEFORE HE WENT HOME ON IV ABX. HE STATED " I AM NOT STAYING I AM LEAVING NOW. A NURSE RUINED BY VEINS ON MY ARM AND ANOTHER CAME IN AND GOT IT FIRST TIME." I HAVE TOLD DR. BANERJEE ALL THE NURSES NAMES THAT HAVE TREATED ME. THE LADY AT BEDSIDE STATED HE WAS LEAVING AND THAT WAS IT. ALICIA STATED WE WERE SORRY HE HAD A BAD VISIT AND HE STATED "I HAVE HAD IT AND LEAVING NOW." ALICIA THEN WENT TO SOLAR SALES ESTIMATOR TO SPEAK WITH PATIENT BEFORE HE LEFT AMA.
[2017-04-13 16:13] LABS: AEROBE ID Final report (())
[2017-04-16 17:07] LABS: AEROBE ID Final report (()); RESULT 1 Eikenella corrodens (())
== END 2017-04-11 16:04 | disposition left against medical advice (07) | DRG 464 ==
LOC: D.MS 10:49
PROVIDERS: Orthopaedic Surgery; ADMIT Family Medicine
PROC: 0QBL0ZZ Excision of Right Tarsal, Open Approach (ICD-10-PCS; principal; 2017-04-06 14:05)
PROC: 0HRMXK3 Replacement of Right Foot Skin with Nonautologous Tissue Substitute, Full Thickness, External Approach (ICD-10-PCS; principal; 2017-04-06 14:05)
PROC: 02HV33Z Insertion of Infusion Device into Superior Vena Cava, Percutaneous Approach (ICD-10-PCS; 2017-04-10)
PROC: B548ZZA Ultrasonography of Superior Vena Cava, Guidance (ICD-10-PCS; 2017-04-10)
DX: T87.43 Infection of amputation stump, right lower extremity (principal); M86.9 Osteomyelitis, unspecified; L97.419 Non-pressure chronic ulcer of right heel and midfoot with unspecified severity; L03.115 Cellulitis of right lower limb; E11.69 Type 2 diabetes mellitus with other specified complication; E11.621 Type 2 diabetes mellitus with foot ulcer; E11.40 Type 2 diabetes mellitus with diabetic neuropathy, unspecified

== ENCOUNTER → 2017-04-18 11:21 | Outpatient (CLI) | payer MEDICARE ==
[2017-04-04 10:50] VITALS: BMI 24.0
[~2017-04-18 11:21] MED LIST changes: +HYDROCODON-ACE1 EAC7 PO
[2017-04-18 13:45] LABS: ERYTHROCYTE SEDIMENTATION RATE 51 mm/hr (0-20)
== END | disposition home or self-care (01) ==
LOC: D.LABREF 11:21
PROVIDERS: Orthopaedic Surgery
DX: T87.43 Infection of amputation stump, right lower extremity (principal)

== ENCOUNTER → 2017-04-24 16:52 | Outpatient (CLI) | payer MEDICARE ==
[2017-04-04 10:50] VITALS: BMI 24.0
[2017-04-24 19:11] LABS: BASOPHILS 0.3 % (0-2); EOSINOPHILS 8.5 % (0-7); HEMATOCRIT 38.6 % (42.0-54.0); IMMATURE GRANULOCYTES 0.3 % (0-5); LYMPHOCYTES 25.1 % (15-50); MCH 28.9 pg (26.0-34.0); MCHC 31.1 g/dL (31.0-37.0); MEAN PLATELET VOLUME 12.4 fL (7.4-10.4); MONOCYTES 9.8 % (2-11); PLATELET COUNT 200 10x3/uL (130-400); RBC 4.15 10x6/uL (4.20-6.10); RDW 13.1 % (11.5-14.5); WBC 6.1 10x3/uL (4.8-10.8)
[2017-04-24 19:37] LABS: C-REACTIVE PROTEIN 3.2 mg/dL (0.0-0.9); CREATININE - SERUM 1.2 mg/dL (0.6-1.3); VANCOMYCIN - TROUGH 24.3 ug/mL (10.0-20.0)
[2017-04-24 20:16] LABS: ERYTHROCYTE SEDIMENTATION RATE 25 mm/hr (0-20)
== END | disposition home or self-care (01) ==
LOC: D.LABREF 16:52
PROVIDERS: Orthopaedic Surgery
DX: T87.43 Infection of amputation stump, right lower extremity (principal); B95.61 Methicillin susceptible Staphylococcus aureus infection as the cause of diseases classified elsewhere; Z79.2 Long term (current) use of antibiotics; Z45.2 Encounter for adjustment and management of vascular access device

== ENCOUNTER → 2017-04-30 13:43 | Outpatient (CLI) | payer MEDICARE | END | disposition home or self-care (01) | LOC: D.LABREF 13:43 | DX: T87.43 Infection of amputation stump, right lower extremity (principal); Z45.2 Encounter for adjustment and management of vascular access device; B95.61 Methicillin susceptible Staphylococcus aureus infection as the cause of diseases classified elsewhere; Z51.81 Encounter for therapeutic drug level monitoring; Z79.2 Long term (current) use of antibiotics ==

== ENCOUNTER → 2017-05-07 09:21 | Outpatient (CLI) | payer MEDICARE ==
[2017-04-04 10:50] VITALS: BMI 24.0
[2017-05-07 11:36] LABS: BASOPHILS 0.4 % (0-2); EOSINOPHILS 10.6 % (0-7); HEMATOCRIT 37.4 % (42.0-54.0); HEMOGLOBIN 12.1 g/dL (13.5-17.5); IMMATURE GRANULOCYTES 0.4 % (0-5); LYMPHOCYTES 24.9 % (15-50); MCH 29.7 pg (26.0-34.0); MCHC 32.4 g/dL (31.0-37.0); MCV 91.7 fL (80.0-100.0); MEAN PLATELET VOLUME 13.4 fL (7.4-10.4); MONOCYTES 11.7 % (2-11); RBC 4.08 10x6/uL (4.20-6.10); RDW 14.1 % (11.5-14.5); WBC 5.7 10x3/uL (4.8-10.8)
[2017-05-07 11:41] LABS: CREATININE - SERUM 1.2 mg/dL (0.6-1.3); UREA NITROGEN 23 mg/dL (7-18); VANCOMYCIN - TROUGH 11.8 ug/mL (10.0-20.0)
[2017-05-07 11:43] LABS: C-REACTIVE PROTEIN < 0.2 mg/dL (0.0-0.9)
[2017-05-07 12:12] LABS: PLATELET COUNT 110 10x3/uL (130-400)
[2017-05-07 12:52] LABS: ERYTHROCYTE SEDIMENTATION RATE 12 mm/hr (0-20)
== END | disposition home or self-care (01) ==
LOC: D.LABREF 09:21
PROVIDERS: Orthopaedic Surgery
DX: T87.43 Infection of amputation stump, right lower extremity (principal); L03.115 Cellulitis of right lower limb; T81.89XA Other complications of procedures, not elsewhere classified, initial encounter; E11.40 Type 2 diabetes mellitus with diabetic neuropathy, unspecified

== ENCOUNTER → 2017-05-14 10:02 | Outpatient (CLI) | payer MEDICARE ==
[2017-04-04 10:50] VITALS: BMI 24.0
[~2017-05-14 10:02] MED LIST changes: +Ancef 2 GM/Dextrose IV
[2017-05-14 11:47] LABS: BASOPHILS 0.2 % (0-2); EOSINOPHILS 8.6 % (0-7); HEMATOCRIT 37.8 % (42.0-54.0); HEMOGLOBIN 12.4 g/dL (13.5-17.5); IMMATURE GRANULOCYTES 0.2 % (0-5); LYMPHOCYTES 26.4 % (15-50); MCH 29.9 pg (26.0-34.0); MCHC 32.8 g/dL (31.0-37.0); MCV 91.1 fL (80.0-100.0); MEAN PLATELET VOLUME 13.5 fL (7.4-10.4); MONOCYTES 12.8 % (2-11); NEUTROPHILS 51.8 % (40-80); RBC 4.15 10x6/uL (4.20-6.10); RDW 14.5 % (11.5-14.5)
[2017-05-14 11:50] LABS: PLATELET COUNT 135 10x3/uL (130-400)
[2017-05-14 12:05] LABS: UREA NITROGEN 23 mg/dL (7-18); VANCOMYCIN - TROUGH 11.7 ug/mL (10.0-20.0)
[2017-05-14 12:06] LABS: C-REACTIVE PROTEIN < 0.2 mg/dL (0.0-0.9)
[2017-05-14 13:20] LABS: ERYTHROCYTE SEDIMENTATION RATE 6 mm/hr (0-20)
== END | disposition home or self-care (01) ==
LOC: D.LABREF 10:02
PROVIDERS: Internal Medicine Infectious Disease
DX: T87.43 Infection of amputation stump, right lower extremity (principal); M86.671 Other chronic osteomyelitis, right ankle and foot; L03.115 Cellulitis of right lower limb; T81.89XA Other complications of procedures, not elsewhere classified, initial encounter

== ENCOUNTER 2017-08-13 14:32 | Inpatient (IN) | payer MEDICARE ==
[~2017-08-13] VITALS: Ht 182.9 cm; Wt 86.2 kg
--- NOTE | ~2017-08-13 | OP ---
PATIENT NAME: CONSTANTINO CHAVEZ MEDICAL RECORD: [id number] :52 LOCATION:D.MS [facility]25 ADMISSION DATE:08/13/17 SURGEON: AIMEE GONCALVES MD DATE OF OPERATION: 08/16/2017 PREOPERATIVE DIAGNOSIS: Osteomyelitis of the medial cuneiform of the foot with recurrent open wound. POSTOPERATIVE DIAGNOSIS: Osteomyelitis of the medial cuneiform of the foot with recurrent open wound. PROCEDURE: Revision amputation of the foot with debridement to include skin, subcutaneous tissue, fat, fascia, muscle and bone. SURGEON: Aimee Goncalves MD ANESTHESIA: General. INTRAOPERATIVE COMPLICATIONS: None. SUMMARY OF PATHOLOGIC FINDINGS: The patient had obvious osteomyelitis. Bone cultures were sent. OPERATIVE SUMMARY IN DETAIL: After obtaining the appropriate preoperative orthopedic surgery consent as well as anesthetic consultation, evaluation, and clearance, the patient was brought to the operating room and placed on the operating table in the supine position. After adequate general laryngeal mask airway was administered, the patient's left lower extremity was prepped and draped in a routine sterile fashion. An incision was made about the area of the osteomyelitis where the protrusion of the medial cuneiform bone was. This was gently dissected and taken down, and cultures were taken. Bone was removed and the bone was sent for bone culture. Further bulb syringe was taken down. All nonviable-appearing necrotic soft tissue was removed with a scalpel, rongeur and curette. Further irrigation was then followed by closure with a 2-0 Prolene. Sterile dressings were applied. The patient was awakened and taken to the recovery room in stable condition. All final needle and sponge counts were correct. TRANSINT:[id number] Voice Confirmation ID: [id number] DOCUMENT ID: [id number] AIMEE GONCALVES MD at 1346 CC: [id number] DICTATION DATE: 08/22/17 0852 ENVELOPE CUTTER: 08/22/17 1215 DIS IN 08/20/[address] [address]
[~2017-08-13 14:32] MED LIST changes: -Ancef 2 GM/Dextrose IV
[2017-08-13 15:19] LABS: BASOPHILS 0.1 % (0-2); EOSINOPHILS 0.1 % (0-7); HEMATOCRIT 40.8 % (42.0-54.0); HEMOGLOBIN 13.7 g/dL (13.5-17.5); IMMATURE GRANULOCYTES 0.3 % (0-5); LYMPHOCYTES 4.2 % (15-50); MCH 29.8 pg (26.0-34.0); MCHC 33.6 g/dL (31.0-37.0); MCV 88.7 fL (80.0-100.0); MEAN PLATELET VOLUME 12.3 fL (7.4-10.4); MONOCYTES 5.8 % (2-11); NEUTROPHILS 89.5 % (40-80); PLATELET COUNT 119 10x3/uL (130-400); RDW 13.7 % (11.5-14.5); WBC 19.7 10x3/uL (4.8-10.8)
[2017-08-13 15:35] LABS: ALBUMIN 3.8 g/dL (3.4-5.0); ANION GAP 13.1 mmol/L (8-16); BILIRUBIN - TOTAL 1.02 mg/dL (0.2-1.3); CALCIUM 8.9 mg/dL (8.5-10.1); CARBON DIOXIDE 29.1 mmol/L (21.0-32.0); CREATININE - SERUM 1.5 mg/dL (0.6-1.3); POTASSIUM - SERUM 4.2 mmol/L (3.5-5.1)
[2017-08-13 17:42] LABS: APPEARANCE CLEAR (CLEAR); BILIRUBIN NEGATIVE (NEGATIVE); COLOR YELLOW (YELLOW); GLUCOSE 1000 mg/dL (NEGATIVE); KETONE MODERATE mg/dL (NEGATIVE); NITRITE NEGATIVE (NEGATIVE); PROTEIN NEGATIVE (NEGATIVE); SPECIFIC GRAVITY 1.015 (1.005-1.020); UROBILINOGEN NORMAL (NORMAL)
[2017-08-14 00:47] VITALS: BP 105/40; BMI 25.8
[2017-08-14 02:28] VITALS: BP 76/44
[2017-08-14 04:41] VITALS: BP 114/48
[2017-08-14 11:11] LABS: ERYTHROCYTE SEDIMENTATION RATE 34 mm/hr (0-20)
[2017-08-14 12:16] VITALS: BP 101/41
[2017-08-14 14:09] VITALS: BMI 25.7
[2017-08-14 20:00] VITALS: BP 114/53
[2017-08-14 22:19] VITALS: Ht 182.9 cm; Wt 86.2 kg
[2017-08-15] VITALS: BP 110/60
[2017-08-15 04:00] VITALS: BP 120/62
[2017-08-15 05:46] LABS: BASOPHILS 0.1 % (0-2); EOSINOPHILS 0.4 % (0-7); HEMATOCRIT 36.4 % (42.0-54.0); HEMOGLOBIN 12.2 g/dL (13.5-17.5); IMMATURE GRANULOCYTES 0.2 % (0-5); LYMPHOCYTES 11.5 % (15-50); MCH 29.9 pg (26.0-34.0); MCHC 33.5 g/dL (31.0-37.0); MCV 89.2 fL (80.0-100.0); MEAN PLATELET VOLUME 12.6 fL (7.4-10.4); NEUTROPHILS 68.8 % (40-80); PLATELET COUNT 123 10x3/uL (130-400); RBC 4.08 10x6/uL (4.20-6.10); RDW 14.3 % (11.5-14.5)
[2017-08-15 05:56] LABS: WBC 9.8 10x3/uL (4.8-10.8)
[2017-08-15 05:57] LABS: HEMOGLOBIN A1C 9.9 % (4.8-6.0)
[2017-08-15 06:02] LABS: ANION GAP 11.6 mmol/L (8-16); CALCIUM 8.8 mg/dL (8.5-10.1); CARBON DIOXIDE 29.8 mmol/L (21.0-32.0); CREATININE - SERUM 1.4 mg/dL (0.6-1.3)
[2017-08-15 06:23] LABS: POTASSIUM - SERUM 3.4 mmol/L (3.5-5.1)
[2017-08-15 09:06] VITALS: BP 109/49
[2017-08-15 13:19] VITALS: BP 90/43
[2017-08-15 16:50] VITALS: BP 114/52
[2017-08-15 21:41] VITALS: BP 133/60
[2017-08-16 01:13] VITALS: BP 120/52
[2017-08-16 05:00] VITALS: BP 111/55
[2017-08-16 05:20] LABS: BASOPHILS 0.2 % (0-2); EOSINOPHILS 1.6 % (0-7); HEMATOCRIT 34.9 % (42.0-54.0); HEMOGLOBIN 11.5 g/dL (13.5-17.5); IMMATURE GRANULOCYTES 0.3 % (0-5); LYMPHOCYTES 15.6 % (15-50); MCH 29.2 pg (26.0-34.0); MCV 88.6 fL (80.0-100.0); MEAN PLATELET VOLUME 11.8 fL (7.4-10.4); MONOCYTES 12.3 % (2-11); PLATELET COUNT 116 10x3/uL (130-400); RBC 3.94 10x6/uL (4.20-6.10); RDW 14.2 % (11.5-14.5)
[2017-08-16 05:21] LABS: WBC 6.1 10x3/uL (4.8-10.8)
[2017-08-16 05:44] LABS: ANION GAP 11.4 mmol/L (8-16); CALCIUM 8.5 mg/dL (8.5-10.1); CARBON DIOXIDE 29.3 mmol/L (21.0-32.0); CREATININE - SERUM 1.2 mg/dL (0.6-1.3); POTASSIUM - SERUM 3.7 mmol/L (3.5-5.1)
[2017-08-16 08:53] VITALS: BP 122/57
[2017-08-16 12:24] VITALS: BP 125/60
[2017-08-16 16:27] VITALS: BP 119/49
[2017-08-16 20:00] VITALS: BP 126/55
[2017-08-17 04:00] VITALS: BP 130/52
[2017-08-17 08:40] VITALS: BP 138/62
[2017-08-17 12:30] VITALS: BP 127/50
[2017-08-17 16:23] VITALS: BP 158/63
[2017-08-17 16:45] VITALS: BP 145/67
[2017-08-17 20:00] VITALS: BP 128/56
[2017-08-18] VITALS: BP 128/54
[2017-08-18 04:00] VITALS: BP 130/62
[2017-08-18 12:36] VITALS: BP 144/55
[2017-08-18 16:36] VITALS: BP 130/59
[2017-08-18 20:00] VITALS: BP 128/59
[2017-08-19] VITALS: BP 143/63
[2017-08-19 04:00] VITALS: BP 129/53
[2017-08-19 09:37] VITALS: BP 137/56
[2017-08-19 11:59] VITALS: BP 132/58
[2017-08-19 16:12] VITALS: BP 146/60
[2017-08-19 20:00] VITALS: BP 131/59
[2017-08-20] VITALS: BP 126/63
[2017-08-20 04:00] VITALS: BP 110/61
[2017-08-20] MEDS ORDERED: HYDROCODON-ACE1 EAC7 PO (07:45)
[2017-08-20 08:09] VITALS: BP 137/71
[2017-08-20] MEDS ORDERED: Ancef 2 GM/Dextrose IV (15:28)
== END 2017-08-20 16:45 | disposition home health service (06) | DRG 629 ==
LOC: D.ER 14:32 → D.MS 22:21
PROVIDERS: Family Medicine; Student in an Organized Health Care Education/Training Program
PROC: 0QBN0ZZ Excision of Right Metatarsal, Open Approach (ICD-10-PCS; 2017-08-16)
PROC: B548ZZA Ultrasonography of Superior Vena Cava, Guidance (ICD-10-PCS; 2017-08-16)
PROC: 02HV33Z Insertion of Infusion Device into Superior Vena Cava, Percutaneous Approach (ICD-10-PCS; principal; 2017-08-20)
DX: E11.69 Type 2 diabetes mellitus with other specified complication (principal); L03.115 Cellulitis of right lower limb; M86.671 Other chronic osteomyelitis, right ankle and foot; R78.81 Bacteremia; R53.1 Weakness; Z91.19 Patient's noncompliance with other medical treatment and regimen; B95.61 Methicillin susceptible Staphylococcus aureus infection as the cause of diseases classified elsewhere; E11.3299 Type 2 diabetes mellitus with mild nonproliferative diabetic retinopathy without macular edema, unspecified eye

== ENCOUNTER → 2017-08-27 18:14 | Outpatient (CLI) | payer MEDICARE ==
[2017-08-14 22:19] VITALS: BMI 25.7
[~2017-08-27 18:14] MED LIST changes: +Ancef 2 GM/Dextrose IV
[2017-08-27 18:45] LABS: BASOPHILS 0.2 % (0-2); HEMATOCRIT 36.5 % (42.0-54.0); HEMOGLOBIN 11.8 g/dL (13.5-17.5); IMMATURE GRANULOCYTES 0.2 % (0-5); LYMPHOCYTES 20.1 % (15-50); MCH 29.4 pg (26.0-34.0); MCHC 32.3 g/dL (31.0-37.0); MCV 90.8 fL (80.0-100.0); MEAN PLATELET VOLUME 12.8 fL (7.4-10.4); MONOCYTES 10.6 % (2-11); NEUTROPHILS 64.9 % (40-80); RBC 4.02 10x6/uL (4.20-6.10); RDW 14.2 % (11.5-14.5)
[2017-08-27 18:53] LABS: PLATELET COUNT 157 10x3/uL (130-400)
[2017-08-27 18:58] LABS: CREATININE - SERUM 0.7 mg/dL (0.6-1.3)
[2017-08-27 20:03] LABS: ERYTHROCYTE SEDIMENTATION RATE 20 mm/hr (0-20)
== END | disposition home or self-care (01) ==
LOC: D.LABREF 18:14
PROVIDERS: Student in an Organized Health Care Education/Training Program
DX: Z51.81 Encounter for therapeutic drug level monitoring (principal); Z79.2 Long term (current) use of antibiotics; L03.90 Cellulitis, unspecified

== ENCOUNTER → 2017-09-03 17:50 | Outpatient (CLI) | payer MEDICARE ==
[2017-08-14 22:19] VITALS: BMI 25.7
[2017-09-03 18:23] LABS: BASOPHILS 0.3 % (0-2); EOSINOPHILS 8.5 % (0-7); HEMATOCRIT 37.6 % (42.0-54.0); LYMPHOCYTES 26.7 % (15-50); MCH 29.7 pg (26.0-34.0); MCHC 31.9 g/dL (31.0-37.0); MCV 93.1 fL (80.0-100.0); MEAN PLATELET VOLUME 13.2 fL (7.4-10.4); MONOCYTES 14.1 % (2-11); NEUTROPHILS 50.4 % (40-80); RBC 4.04 10x6/uL (4.20-6.10); RDW 14.3 % (11.5-14.5); WBC 3.9 10x3/uL (4.8-10.8)
[2017-09-03 18:36] LABS: PLATELET COUNT 112 10x3/uL (130-400)
[2017-09-03 18:50] LABS: C-REACTIVE PROTEIN < 0.2 mg/dL (0.0-0.9); CREATININE - SERUM 0.8 mg/dL (0.6-1.3); UREA NITROGEN 15 mg/dL (7-18)
[2017-09-03 20:12] LABS: ERYTHROCYTE SEDIMENTATION RATE 4 mm/hr (0-20)
== END | disposition home or self-care (01) ==
LOC: D.LABREF 17:50
PROVIDERS: Student in an Organized Health Care Education/Training Program
DX: M86.9 Osteomyelitis, unspecified (principal)

== ENCOUNTER → 2017-09-10 19:33 | Outpatient (CLI) | payer MEDICARE ==
[2017-08-14 22:19] VITALS: BMI 25.7
[2017-09-10 21:03] LABS: BASOPHILS 0.2 % (0-2); EOSINOPHILS 7.5 % (0-7); HEMATOCRIT 37.6 % (42.0-54.0); LYMPHOCYTES 31.1 % (15-50); MCH 29.6 pg (26.0-34.0); MCHC 31.9 g/dL (31.0-37.0); MCV 92.8 fL (80.0-100.0); MEAN PLATELET VOLUME 13.5 fL (7.4-10.4); MONOCYTES 13.2 % (2-11); PLATELET COUNT 114 10x3/uL (130-400); RBC 4.05 10x6/uL (4.20-6.10); RDW 14.1 % (11.5-14.5); WBC 4.4 10x3/uL (4.8-10.8)
[2017-09-10 22:06] LABS: ERYTHROCYTE SEDIMENTATION RATE 5 mm/hr (0-20)
== END | disposition home or self-care (01) ==
LOC: D.LABREF 19:33
PROVIDERS: Student in an Organized Health Care Education/Training Program
DX: Z51.81 Encounter for therapeutic drug level monitoring (principal); Z79.2 Long term (current) use of antibiotics; L03.90 Cellulitis, unspecified

== ENCOUNTER → 2017-09-24 19:13 | Outpatient (CLI) | payer MEDICARE ==
[2017-08-14 22:19] VITALS: BMI 25.7
[2017-09-24 19:42] LABS: BASOPHILS 0.2 % (0-2); EOSINOPHILS 5.5 % (0-7); HEMATOCRIT 38.3 % (42.0-54.0); HEMOGLOBIN 12.2 g/dL (13.5-17.5); MCH 29.8 pg (26.0-34.0); MCHC 31.9 g/dL (31.0-37.0); MCV 93.6 fL (80.0-100.0); MEAN PLATELET VOLUME 14.2 fL (7.4-10.4); NEUTROPHILS 54.3 % (40-80); PLATELET COUNT 121 10x3/uL (130-400); RBC 4.09 10x6/uL (4.20-6.10); RDW 14.1 % (11.5-14.5); WBC 4.2 10x3/uL (4.8-10.8)
[2017-09-24 20:02] LABS: POTASSIUM - SERUM 4.4 mmol/L (3.5-5.1)
[2017-09-24 21:11] LABS: ERYTHROCYTE SEDIMENTATION RATE 3 mm/hr (0-20)
== END | disposition home or self-care (01) ==
LOC: D.LABREF 19:13
PROVIDERS: Student in an Organized Health Care Education/Training Program
DX: M86.071 Acute hematogenous osteomyelitis, right ankle and foot (principal)

== ENCOUNTER 2018-05-13 17:55 | Emergency (ER) | payer MEDICARE ==
[~2018-05-13] VITALS: Ht 182.9 cm; Wt 86.2 kg
[2018-05-13 18:01] VITALS: Ht 182.9 cm; Wt 86.2 kg
[2018-05-13 18:54] LABS: BASOPHILS 0.2 % (0-2); EOSINOPHILS 4.2 % (0-7); HEMATOCRIT 34.7 % (42.0-54.0); LYMPHOCYTES 17.3 % (15-50); MCH 27.1 pg (26.0-34.0); MCHC 31.7 g/dL (31.0-37.0); MCV 85.5 fL (80.0-100.0); MONOCYTES 17.1 % (2-11); NEUTROPHILS 61.2 % (40-80); RBC 4.06 10x6/uL (4.20-6.10); RDW 13.6 % (11.5-14.5); WBC 4.5 10x3/uL (4.8-10.8)
[2018-05-13 18:55] LABS: PLATELET COUNT 187 10x3/uL (130-400)
[2018-05-13] MEDS ORDERED: MECLIZINE HCL25 MG PO (19:13)
[2018-05-13] MEDS ORDERED: ZOFRAN4 MG PO (19:13)
[2018-05-13 19:19] LABS: ALBUMIN 3.5 g/dL (3.4-5.0); ANION GAP 12.3 mmol/L (8-16); BILIRUBIN - TOTAL 0.39 mg/dL (0.2-1.3); CARBON DIOXIDE 29.9 mmol/L (21.0-32.0); CREATININE - SERUM 1.5 mg/dL (0.6-1.3); POTASSIUM - SERUM 4.2 mmol/L (3.5-5.1); PROTEIN - SERUM 7.8 g/dL (6.4-8.2)
[2018-05-13 19:38] VITALS: BP 147/76
== END 2018-05-13 19:40 | disposition home or self-care (01) ==
LOC: D.ER 17:55
PROVIDERS: Family Medicine
DX: S09.90XA Unspecified injury of head, initial encounter (principal); W10.9XXA Fall (on) (from) unspecified stairs and steps, initial encounter; Y93.89 Activity, other specified; Y92.019 Unspecified place in single-family (private) house as the place of occurrence of the external cause; S00.83XA Contusion of other part of head, initial encounter; F07.81 Postconcussional syndrome; R42 Dizziness and giddiness; E11.9 Type 2 diabetes mellitus without complications; I50.9 Heart failure, unspecified

== ENCOUNTER 2018-12-09 17:09 | Inpatient (IN) | payer MEDICARE ==
[~2018-12-09 17:09] MED LIST changes: +MECLIZINE HCL25 MG PO; +ZOFRAN4 MG PO
[2018-12-09 17:57] LABS: BASOPHILS 0.1 % (0-2); EOSINOPHILS 0.7 % (0-7); HEMATOCRIT 26.7 % (42.0-54.0); HEMOGLOBIN 7.9 g/dL (13.5-17.5); IMMATURE GRANULOCYTES 0.2 % (0-5); MCH 20.2 pg (26.0-34.0); MCHC 29.6 g/dL (31.0-37.0); MCV 68.3 fL (80.0-100.0); MEAN PLATELET VOLUME 10.8 fL (7.4-10.4); MONOCYTES 8.8 % (2-11); NEUTROPHILS 83.2 % (40-80); RBC 3.91 10x6/uL (4.20-6.10); RDW 16.6 % (11.5-14.5); WBC 9.6 10x3/uL (4.8-10.8)
[2018-12-09 17:58] LABS: PLATELET COUNT 352 10x3/uL (130-400)
[2018-12-09 18:52] LABS: BILIRUBIN - TOTAL 0.51 mg/dL (0.2-1.3); CALCIUM 8.6 mg/dL (8.5-10.1); CARBON DIOXIDE 24.7 mmol/L (21.0-32.0); CREATININE - SERUM 1.3 mg/dL (0.6-1.3); POTASSIUM - SERUM 4.7 mmol/L (3.5-5.1); PROTEIN - SERUM 7.8 g/dL (6.4-8.2)
[2018-12-09 19:30] VITALS: BP 129/64
--- NOTE | 2018-12-09 19:30 | NUR ---
PT PROVIDED SANDWICH BOX PER REQUEST. PT SITTING UP IN BED, PT ALERT, ORIENTED.
[2018-12-09 19:32] LABS: % SATURATION 4 % (15-55); IRON 13 ug/dl (35-150); TOTAL IRON BIND CAPACITY 320 ug/dl (260-445); UNSAT IRON BIND CAPACITY 307 ug/dl (150-375)
--- NOTE | 2018-12-09 20:10 | NUR ---
FSBS 291.
[2018-12-09 20:30] VITALS: BP 150/58
--- NOTE | 2018-12-09 21:15 | NUR ---
PT PROVIDED ICE WATER PER REQUEST. PT SITTING UP IN BED. PT DENIES NEEDS AT THIS TIME.
[2018-12-09 21:30] VITALS: BP 116/53
[2018-12-09 21:33] LABS: APPEARANCE CLEAR (CLEAR); BILIRUBIN NEGATIVE (NEGATIVE); COLOR YELLOW (YELLOW); GLUCOSE 250 mg/dL (NEGATIVE); KETONE NEGATIVE (NEGATIVE); NITRITE NEGATIVE (NEGATIVE); PROTEIN NEGATIVE (NEGATIVE); SPECIFIC GRAVITY 1.015 (1.005-1.020); UROBILINOGEN NORMAL (NORMAL)
[2018-12-10] VITALS (7 sets, daily range): BP systolic 113–136; BP diastolic 40–84; BMI 25.1
[2018-12-10 06:13] LABS: ANION GAP 10.4 mmol/L (8-16); CALCIUM 8.1 mg/dL (8.5-10.1); CARBON DIOXIDE 26.8 mmol/L (21.0-32.0); CREATININE - SERUM 1.1 mg/dL (0.6-1.3); POTASSIUM - SERUM 4.2 mmol/L (3.5-5.1)
[2018-12-10 07:05] LABS: BASOPHILS 0.1 % (0-2); EOSINOPHILS 2.5 % (0-7); HEMATOCRIT 21.5 % (42.0-54.0); IMMATURE GRANULOCYTES 0.4 % (0-5); LYMPHOCYTES 12.8 % (15-50); MCHC 28.8 g/dL (31.0-37.0); MCV 68.7 fL (80.0-100.0); MEAN PLATELET VOLUME 9.4 fL (7.4-10.4); MONOCYTES 19.8 % (2-11); NEUTROPHILS 64.4 % (40-80); RBC 3.13 10x6/uL (4.20-6.10); RDW 16.6 % (11.5-14.5); WBC 7.9 10x3/uL (4.8-10.8)
[2018-12-10 07:07] LABS: HEMOGLOBIN 6.2 g/dL (13.5-17.5); MCH 19.8 pg (26.0-34.0); PLATELET COUNT 235 10x3/uL (130-400)
--- NOTE | 2018-12-10 09:56 | NUR ---
PT TO GO TO SURGERY TODAY PER DR DREW, WILL GIVE 2 UNITS ORDERED AND IF NEEDED OR WILL FINISH THE REST. CONTINUE WITH PLAN OF CARE
--- NOTE | 2018-12-10 13:31 | HP ---
PATIENT: CONSTANTINO CHAVEZ MEDICAL RECORD: [id number] ACCOUNT: [id number] LOCATION:D.MS [id number] : 52 ADMISSION DATE: 12/09/18 PCP: ALINA BANERJEE MD HISTORY AND PHYSICAL EXAMINATION DATE OF ADMISSION: 12/09/2018 CHIEF COMPLAINT: Pain and fever in the left foot. HISTORY OF PRESENT ILLNESS: This is a 68-year-old white male with poorly controlled diabetes who presents today complaining of worsening pain and fever over the last 3 days. He has had a callus on the bottom of his left foot for a long time and it "broke open" a few days ago, pain has gotten worse. He also feels very anemic. He states he is very fatigued if he just stands and brushes his teeth and he has to sit down and rest a little bit. He denies any melena or any kind of blood in his stools. He is admitted for cellulitis and care of diabetic foot ulcer as well as anemia. PAST MEDICAL AND SURGICAL HISTORY: Poorly controlled diabetes, hyperlipidemia, coronary artery disease, peripheral artery disease, history of diabetic foot problems, and history of herniated discs in his neck/back. PAST SURGICAL HISTORY: Coronary artery bypass graft. He has had transmetatarsal amputation of the right foot. He has had amputation of the second toe of the left foot. He has been seen in the wound clinic by Dr. Da Silva for foot ulcers. 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 ALLERGIES: PENICILLIN AND SULFA. HOME MEDICATIONS: 1. Atorvastatin 40 mg once a day. 2. Lisinopril 2.5 mg once a day. 3. Januvia 100 mg once a day. 4. Seroquel 50 mg at bedtime. 5. Citalopram 40 mg once a day. 6. Lasix 20 mg once a day. 7. Metformin 1000 mg twice a day. 8. Carvedilol 3.125 mg twice a day. 9. Glipizide 10 mg twice a day. HABITS: No tobacco, alcohol, or drugs. FAMILY HISTORY: Father at 89. Mother at 87, she had diabetes. REVIEW OF SYSTEMS: GENERAL: No major weight changes. HEENT: No particular sinus or allergy problems. RESPIRATORY: No history of emphysema or asthma. CARDIAC: See above history with his coronary artery disease, status post coronary artery bypass graft. GASTROINTESTINAL: No significant GI problems. GENITOURINARY: No significant problems there. MUSCULOSKELETAL: No significant joint aches and pains. HISTORY AND PHYSICAL [id number] CONSTANTINO CHAVEZ NEUROLOGIC: He has peripheral neuropathy. Denies seizures or migraines. PSYCHIATRIC: Maybe some anxiety at times. PHYSICAL EXAMINATION: VITAL SIGNS: Temperature 101.5, pulse 94, respirations 16, and O2 sat 99%. GENERAL: He is awake and alert. He does not appear in acute distress. HEENT: Grossly within normal limits. NECK: Supple. No JVD or bruit. HEART: Regular rate and rhythm. LUNGS: Fairly clear. ABDOMEN: Soft, flat, nontender. EXTREMITIES: Examination of the right lower extremity and foot show transmetatarsal amputation of the right foot. He has superficial ulceration about the size of a silver dollar on the bottom of his right foot. He states he pulls the skin off of that every once in a while. Examination of the left foot shows generalized cellulitis around the toes. There is some warmth there on the sole of the foot. Under the MTP joint of the great toe, there is an ulcer, it does not appear to be quite down to the bone at this point, there is purulent drainage there. The second toe has been amputated. LABORATORY DATA: CBC with a white count 9600, hemoglobin 7.9, and hematocrit 26.7. Sodium 132, potassium 4.7, chloride 97, CO2 24.7, BUN 20, creatinine 1.3, glucose was 346, and calcium 8.6. Lactic acid 1.5. Liver functions were all normal. Iron is 13, TIBC is 320, iron saturation is 4. DIAGNOSTIC STUDIES: X-ray of the left foot shows transmetatarsal amputation of the second toe, there is an osteophyte off the calcaneus, old fracture on the fifth metatarsal. ASSESSMENT: 1. Diabetic foot ulcer, left foot. 2. Cellulitis. 3. Poorly controlled diabetes. 4. Iron deficient anemia. PLAN: We will Hemoccult stools. We will start IV vancomycin and Rocephin. We will give him iron replacement, wound care, and consider ortho consultation. Other tests and procedures as warranted. TRANSINT:[id number] Voice Confirmation ID: [id number] DOCUMENT ID: [id number] ALBIN ARIZMENDI MD at 1331 CC: [id number] DICTATION DATE: 12/09/182057 AIRPORT DUTY MANAGER: 12/09/18 2321 ADM IN [place] [id number] [place] [id number]
--- NOTE | 2018-12-10 18:39 | NUR ---
I have reviewed this patient and I concur with the Shift Assessment completed by the Licensed Practical Nurse today this shift.
--- NOTE | 2018-12-10 21:10 | NUR ---
RESTING QUEITLY.COMPLIANTS OF PAIN TO LLE. NORCO ONE TAB GIVEN PER ORDERS. SHANNA WRAP DRESSING INTACT TO LLE WITHOUT DRAINAGE NOTED. IV INFUSING TO LFA WITHOUT REDNESS OR EDEMA NOTED. CL IN REACH
[2018-12-11 00:38] VITALS: BP 101/62
--- NOTE | 2018-12-11 03:00 | NUR ---
I have reviewed this patient and I concur with the Shift Assessment completed by the Licensed Practical Nurse today this shift.
[2018-12-11 05:03] VITALS: BP 95/52
[2018-12-11 06:08] LABS: BASOPHILS 0.1 % (0-2); EOSINOPHILS 1.2 % (0-7); IMMATURE GRANULOCYTES 0.2 % (0-5); MCH 21.7 pg (26.0-34.0); MCHC 30.2 g/dL (31.0-37.0); MEAN PLATELET VOLUME 11.1 fL (7.4-10.4); MONOCYTES 16.2 % (2-11); NEUTROPHILS 75.3 % (40-80); PLATELET COUNT 245 10x3/uL (130-400); RBC 3.74 10x6/uL (4.20-6.10); RDW 18.1 % (11.5-14.5); WBC 8.4 10x3/uL (4.8-10.8)
[2018-12-11 06:13] LABS: ANION GAP 12.3 mmol/L (8-16); BILIRUBIN - TOTAL 0.49 mg/dL (0.2-1.3); CALCIUM 7.9 mg/dL (8.5-10.1); CREATININE - SERUM 1.1 mg/dL (0.6-1.3); POTASSIUM - SERUM 4.3 mmol/L (3.5-5.1)
[2018-12-11 06:26] LABS: HEMOGLOBIN 8.1 g/dL (13.5-17.5)
[2018-12-11 06:27] LABS: HEMATOCRIT 26.8 % (42.0-54.0); MCV 71.7 fL (80.0-100.0)
[2018-12-11 06:46] LABS: ALBUMIN 2.1 g/dL (3.4-5.0)
[2018-12-11 09:16] VITALS: BP 103/43
--- NOTE | 2018-12-11 10:48 | NUR ---
LEFT FOREARM PIV INFILTRATED. 22G RESITED TO RIGHT FOREARM BY PANFILO BOWIE -1 ATTEMP. 2 PREVIOUS ATTEMPTS BY MYSELF.
[2018-12-11 13:37] VITALS: BP 97/39
[2018-12-11 16:48] VITALS: BP 112/48
--- NOTE | 2018-12-11 17:12 | NUR ---
I have reviewed this patient and I concur with the Shift Assessment completed by the Licensed Practical Nurse today this shift.
--- NOTE | 2018-12-11 18:21 | NUR ---
SCD'S PLACED ON PATIENT. MACHINE TURNED ON AND FUNCTIONING. ATTEMPTED TO PLACE TE HOSE. PATIENT DID NOT TOLERATE HAVING THEM PUT ON.
[2018-12-11 22:12] VITALS: BP 109/52
[2018-12-12 00:45] VITALS: BP 99/54
--- NOTE | 2018-12-12 03:39 | NUR ---
I have reviewed this patient and I concur with the Shift Assessment completed by the Licensed Practical Nurse today this shift.
[2018-12-12 04:45] LABS: BASOPHILS 0.1 % (0-2); EOSINOPHILS 4.1 % (0-7); HEMATOCRIT 26.2 % (42.0-54.0); IMMATURE GRANULOCYTES 0.1 % (0-5); MCHC 30.5 g/dL (31.0-37.0); MEAN PLATELET VOLUME 10.7 fL (7.4-10.4); MONOCYTES 15.2 % (2-11); NEUTROPHILS 69.5 % (40-80); PLATELET COUNT 228 10x3/uL (130-400); RBC 3.64 10x6/uL (4.20-6.10); RDW 18.2 % (11.5-14.5); WBC 7.6 10x3/uL (4.8-10.8)
[2018-12-12 05:00] LABS: CALC OSMOLALITY 279 mosm/kg (275-300); CARBON DIOXIDE 26.2 mmol/L (21.0-32.0); CHLORIDE - SERUM 104 mmol/L (98-107); CREATININE - SERUM 0.9 mg/dL (0.6-1.3); POTASSIUM - SERUM 3.8 mmol/L (3.5-5.1); SODIUM 139 mmol/L (136-145); UREA NITROGEN 17 mg/dL (7-18); eGFR NON AFRICAN AMERICAN 89 mL/min (90-120)
[2018-12-12 05:01] LABS: GLUCOSE 102 mg/dL (74-106)
[2018-12-12 05:12] VITALS: BP 112/50
[2018-12-12 05:31] LABS: ERYTHROCYTE SEDIMENTATION RATE 5 mm/hr (0-20)
[2018-12-12 08:45] VITALS: BP 127/57
[2018-12-12 12:48] VITALS: BP 112/46
--- NOTE | 2018-12-12 14:26 | NUR ---
NUTRITION F/U PT TOLERATING DIABETIC DIET, 50% INTAKE RECENT MEALS. WILL CONTINUE TO PROVIDE DIET, MONITOR PO INTAKE. RD FOLLOWING
[2018-12-12 16:35] VITALS: BP 113/46
--- NOTE | 2018-12-12 17:06 | NUR ---
I have reviewed this patient and I concur with the Shift Assessment completed by the Licensed Practical Nurse today this shift.
--- NOTE | 2018-12-12 20:30 | NUR ---
AWAKE,WATCHING TV WITH NO COMPLAITNS VOICED. SHANNA WRAP TO LLE WITHOUT DRAINAGE NOTED.DRESSING TO RIGHT FOOT INTACT WITHOUT DRAINAGE NOTED.RESP UNLABORED. CL IN REACH
[2018-12-12 21:34] VITALS: BP 119/48
[2018-12-13 01:25] VITALS: BP 116/52
[2018-12-13 05:12] LABS: BASOPHILS 0.1 % (0-2); EOSINOPHILS 5.3 % (0-7); HEMATOCRIT 27.6 % (42.0-54.0); HEMOGLOBIN 8.3 g/dL (13.5-17.5); IMMATURE GRANULOCYTES 0.3 % (0-5); LYMPHOCYTES 13.4 % (15-50); MCH 21.7 pg (26.0-34.0); MCHC 30.1 g/dL (31.0-37.0); MCV 72.3 fL (80.0-100.0); MEAN PLATELET VOLUME 10.1 fL (7.4-10.4); MONOCYTES 12.8 % (2-11); NEUTROPHILS 68.1 % (40-80); PLATELET COUNT 228 10x3/uL (130-400); RBC 3.82 10x6/uL (4.20-6.10); RDW 18.8 % (11.5-14.5); WBC 6.9 10x3/uL (4.8-10.8)
[2018-12-13 05:25] LABS: CALC OSMOLALITY 279 mosm/kg (275-300); CALCIUM 8.4 mg/dL (8.5-10.1); CARBON DIOXIDE 29.1 mmol/L (21.0-32.0); CHLORIDE - SERUM 106 mmol/L (98-107); CREATININE - SERUM 0.9 mg/dL (0.6-1.3); GLUCOSE 87 mg/dL (74-106); POTASSIUM - SERUM 3.8 mmol/L (3.5-5.1); SODIUM 140 mmol/L (136-145); UREA NITROGEN 19 mg/dL (7-18); eGFR NON AFRICAN AMERICAN 89 mL/min (90-120)
[2018-12-13 05:27] VITALS: BP 128/72
--- NOTE | 2018-12-13 07:45 | NUR ---
ASSESSMENT PER FLOW SHEET. PT IS WITHOUT DISTRESS. CALL LIGHT IN REACH
[2018-12-13 08:46] VITALS: BP 129/57
--- NOTE | 2018-12-13 10:06 | NUR ---
BACK IN BED.SCD'S ON PT. PAIN RESOLVED
--- NOTE | 2018-12-13 11:25 | NUR ---
PT HAS SURGICAL WOUND ON LEFT PLANTAR FOOT MEASURING 11CM X 2CM X 4.5CM. WOUND BED IS RED AND HAS NO ODOR. I&D WAS DONE BY DR. DREW A FEW DAYS AGO. RIGHT FOOT HAS HAD ALL TOES AMPUTATED AND ON THE PLANTAR ASPECT THERE IS A 4CM X 7CM HEALING WOUND. RECOMMENDATIONS: -DAILY DRESSING CHANGES TO BOTH FEET: -LEFT FOOT WITH 1" KERLIX MOISTENED WITH SALINE (WET TO DRY DRESSING) -RIGHT FOOT - COVER WOUND WITH KERLIX, 4X4S AND WRAP WITH KERLIX WOUND CARE WILL MONITOR
--- NOTE | 2018-12-13 11:52 | MORECARE ---
CASE MANAGEMENT DISCHARGE SUMMARY PATIENT: CONSTANTINO CHAVEZ UNIT: [id number] ADM DATE: 12/09/18 AGE: 68 : 51 SEX: M ROOM/BED: D.2226 AUTHOR: SUZIE ISBELL PHYSICIAN: REFERRING PHYSICIAN: ALINA BANERJEE MD DATE OF SERVICE: 12/13/18 Discharge Plan Patient Name: CONSTANTINO CHAVEZ Facility: [facility]:[place] : 1950 Planned Disposition: Home with Home Health Anticipated Discharge Date: Discharge Date: Expected LOS: Initial Reviewer: [email or web address] Initial Review Date: 12/09/2018 Generated: 12/13/18 12:52 pm Patient Name: CONSTANTINO CHAVEZ Page 20557 at 1152 All edits/amendments must be made on the electronic document DICTATION DATE: 12/13/18 1151 PLASTIC PARTS DESIGNER: VIJAY 12/13/18 1151 RPT#: [id number] DC DATE: STATUS: ADM IN [facility] [address] [place] [address] END OF REPORT
--- NOTE | 2018-12-13 11:59 | MORECARE ---
CASE MANAGEMENT DISCHARGE SUMMARY PATIENT: CONSTANTINO CHAVEZ UNIT: [id number] ADM DATE: 12/09/18 AGE: 68 : 51 SEX: M ROOM/BED: D.2226 AUTHOR: SUZIE ISBELL PHYSICIAN: REFERRING PHYSICIAN: ALINA BANERJEE MD DATE OF SERVICE: 12/13/18 Discharge Plan Patient Name: CONSTANTINO CHAVEZ [facility] : 1950 Planned Disposition: Home with Home Health Anticipated Discharge Date: Discharge Date: Expected LOS: Initial Reviewer: [email or web address] Initial Review Date: 12/09/2018 Generated: 12/13/18 12:59 pm DCPIA - Discharge Planning Initial Assessment Updated by [email or web address]: Marlene Moss on 12/13/18 11:52 am * Is the patient Alert and Oriented? Yes * How many steps to enter\exit or inside your home? 8w/rails/0 * PCP Dr. Banerjee * Pharmacy [facility] at [facility] * Preadmission Environment Home Alone * ADLs Independent * Equipment Cane * List name and contact numbers for known caregivers / representatives who currently or will assist patient after discharge: [facility] - [phone] * Verbal permission to speak to the caregivers and representatives has been obtained from the patient. Yes * Community resources currently utilized None * Additional services required to return to the preadmission environment? Yes * Can the patient safely return to the preadmission environment? Yes * Has this patient been hospitalized within the prior 30 days at any hospital? No Last DP export: 12/13/18 10:52 am Patient Name: CONSTANTINO CHAVEZ Page 08703 at 1159 All edits/amendments must be made on the electronic document DICTATION DATE: 12/13/18 115 WET ROOM SUPERVISOR: VIJAY 12/13/18 1159 RPT#: [id number] DC DATE: STATUS: ADM IN [facility] [address] [place] [address] END OF REPORT
--- NOTE | 2018-12-13 12:07 | MORECARE ---
CASE MANAGEMENT DISCHARGE SUMMARY PATIENT: CONSTANTINO CHAVEZ UNIT: [id number] ADM DATE: 12/09/18 AGE: 68 : 51 SEX: M ROOM/BED: D.2226 AUTHOR: AKILAHDOC PHYSICIAN: REFERRING PHYSICIAN: ALINA BANERJEE MD DATE OF SERVICE: 12/13/18 Discharge Plan Patient Name: CONSTANTINO CHAVEZ Facility: [facility]:[place] : 1950 Planned Disposition: Home with Home Health Anticipated Discharge Date: Discharge Date: Expected LOS: Initial Reviewer: [email or web address] Initial Review Date: 12/09/2018 Generated: 12/13/18 1:07 pm Comments DCP- Discharge Planning Updated by [email or web address]: Marlene Moss on 12/13/18 11:[address] Patient Name: CONSTANTINO CHAVEZ Admission Status: ER Accout number: [id number] Admission Date: 12-09-2018 : 1950 Admission Diagnosis:ANEMIA, UNSPECIFIED Attending: ALINA BANERJEE Current LOS: 4 Anticipated DC Date: Planned Disposition: Home with Home Health Primary Insurance: MEDICARE A & B Discharge Planning Comments: CM met with patient to complete initial dc planning assessment. CM educated patient on the CM role and verbal consent given by patient to complete assessment. Patient lives at home alone. At discharge patient plans to return and feels this is a safe discharge. States he is completely independent with all ADL's and AIDL's. States he uses a cane only for ambulation. He states he does not have a glucometer. I told him to have Dr. Banerjee write a prescription for a glucometer and strips to check his blood sugar. I also informed him that he could purchase a glucometer at [facility] or [facility], voiced understanding. CM discussed availability of home health, rehab services, and medical equipment. He agrees to home health and VICTOR HUGO form for [place] signed. I called [facility] and spoke with Margot and clinical faxed. CM will continue to follow and will assist as needed with dc plans/needs. Fence Laborer: Marlene Moss DCPIA - Discharge Planning Initial Assessment Updated by [email or web address]: Marlene Moss on 12/13/18 11:52 am * Is the patient Alert and Oriented? Yes * How many steps to enter\exit or inside your home? 8w/rails/0 * PCP Dr. Banerjee * [facility] * Preadmission Environment Home Alone * ADLs Independent * Equipment Cane * List name and contact numbers for known caregivers / representatives who currently or will assist patient after discharge: Jackie fermin - [phone] * Verbal permission to speak to the caregivers and representatives has been obtained from the patient. Yes * Community resources currently utilized None * Additional services required to return to the preadmission environment? Yes * Can the patient safely return to the preadmission environment? Yes * Has this patient been hospitalized within the prior 30 days at any hospital? No Last DP export: 12/13/18 10:59 am Patient Name: CONSTANTINO CHAVEZ Page 55515 at 1207 All edits/amendments must be made on the electronic document DICTATION DATE: 12/13/181206 DIRECTOR PROPERTY: VIJAY 12/13/181206 RPT#: [id number] DC DATE: STATUS: ADM IN [facility] [address] [place] [address] END OF REPORT
--- NOTE | 2018-12-13 12:16 | MORECARE ---
CASE MANAGEMENT DISCHARGE SUMMARY PATIENT: CONSTANTINO CHAVEZ UNIT: [id number] ADM DATE: 12/09/18 AGE: 68 : 51 SEX: M ROOM/BED: D.2226 AUTHOR: AKILAHDOC PHYSICIAN: REFERRING PHYSICIAN: ALINA BANERJEE MD DATE OF SERVICE: 12/13/18 Discharge Plan Patient Name: CONSTANTINO CHAVEZ Facility: [facility]:[place] : 1950 Planned Disposition: Home with Home Health Anticipated Discharge Date: Discharge Date: Expected LOS: Initial Reviewer: [email or web address] Initial Review Date: 12/09/2018 Generated: 12/13/18 1:16 pm Comments DCP- Discharge Planning Updated by [email or web address]: Marlene Moss on 12/13/18 11:[address] Patient Name: CONSTANTINO CHAVEZ Admission Status: ER Accout number: [id number] Admission Date: 12-09-2018 : 1950 Admission Diagnosis:ANEMIA, UNSPECIFIED Attending: ALINA BANERJEE Current LOS: 4 Anticipated DC Date: Planned Disposition: Home with Home Health Primary Insurance: MEDICARE A & B Discharge Planning Comments: CM met with patient to complete initial dc planning assessment. CM educated patient on the CM role and verbal consent given by patient to complete assessment. Patient lives at home alone. At discharge patient plans to return and feels this is a safe discharge. States he is completely independent with all ADL's and AIDL's. States he uses a cane only for ambulation. He states he does not have a glucometer. I told him to have Dr. Banerjee write a prescription for a glucometer and strips to check his blood sugar. I also informed him that he could purchase a glucometer at [facility] or [facility], voiced understanding. CM discussed availability of home health, rehab services, and medical equipment. He agrees to home health and VICTOR HUGO form for [place] signed. I called [facility] and spoke with Margot and clinical faxed. CM will continue to follow and will assist as needed with dc plans/needs. Slat Basket Top Maker: Marlene Moss DCPIA - Discharge Planning Initial Assessment Updated by [email or web address]: Marlene Moss on 12/13/18 11:52 am * Is the patient Alert and Oriented? Yes * How many steps to enter\exit or inside your home? 8w/rails/0 * PCP Dr. Banerjee * [facility] * Preadmission Environment Home Alone * ADLs Independent * Equipment Cane * List name and contact numbers for known caregivers / representatives who currently or will assist patient after discharge: Jackie christensen - [phone] * Verbal permission to speak to the caregivers and representatives has been obtained from the patient. Yes * Community resources currently utilized None * Additional services required to return to the preadmission environment? Yes * Can the patient safely return to the preadmission environment? Yes * Has this patient been hospitalized within the prior 30 days at any hospital? No External Providers External Provider: [facility] Next Contact Date: Service Request Date: Service Type: Resolution: Reviewer: Comments: Last DP export: 12/13/18 11:07 am Patient Name: CONSTANTINO CHAVEZ Page 42777 at 1216 All edits/amendments must be made on the electronic document DICTATION DATE: 12/13/18 1215 SCHOOL SPEECH THERAPIST: VIJAY 12/13/18 1215 RPT#: [id number] DC DATE: STATUS: ADM IN [facility] [address] [place] [address] END OF REPORT
--- NOTE | 2018-12-13 12:44 | NUR ---
BLOOD SUGAR CHECK ORDERED. PT REQUESTED ME CHECK HIS SUGAR IN BIG TOE ON LEFT FOOT. I EXPLAINED TO HIM I WOULD NOT BECAUSE OF THE WOUNDS ON HIS FEET AND POSSIBLY DECREASED BLOOD FLOW.BLOOD GLUCOSE TAKEN IN LEFT INDEX FINGER.
[2018-12-13 12:48] VITALS: BP 140/78
[2018-12-13 16:45] VITALS: BP 123/54
--- NOTE | 2018-12-13 19:15 | NUR ---
RECEIVED CARE FROM DAY NURSE. LYING IN BED WATCHING TV. IV INFUSING TO PATENT R FA. REPORTS NO NEEDS AT THIS TIME. CALL LIGHT AT SIDE.
[2018-12-13 19:35] VITALS: BP 115/50
--- NOTE | 2018-12-14 00:59 | NUR ---
I have reviewed this patient and I concur with the Shift Assessment completed by the Licensed Practical Nurse today this shift.
[2018-12-14 01:36] VITALS: BP 108/50
[2018-12-14 05:02] LABS: BASOPHILS 0.3 % (0-2); EOSINOPHILS 4.5 % (0-7); HEMATOCRIT 27.3 % (42.0-54.0); HEMOGLOBIN 8.2 g/dL (13.5-17.5); IMMATURE GRANULOCYTES 0.2 % (0-5); MCH 21.8 pg (26.0-34.0); MCV 72.6 fL (80.0-100.0); MEAN PLATELET VOLUME 10.4 fL (7.4-10.4); MONOCYTES 11.8 % (2-11); NEUTROPHILS 70.2 % (40-80); PLATELET COUNT 225 10x3/uL (130-400); RBC 3.76 10x6/uL (4.20-6.10); WBC 6.4 10x3/uL (4.8-10.8)
[2018-12-14 05:13] LABS: ANION GAP 8.1 mmol/L (8-16); CALCIUM 8.6 mg/dL (8.5-10.1); CARBON DIOXIDE 29.7 mmol/L (21.0-32.0); CREATININE - SERUM 1.1 mg/dL (0.6-1.3); POTASSIUM - SERUM 3.8 mmol/L (3.5-5.1)
[2018-12-14 05:39] VITALS: BP 132/50
--- NOTE | 2018-12-14 07:55 | NUR ---
PT LYING IN BED ASLEEP, EASILY AWAKENED FOR ASSESSMENT AND MORNING MEDS, NO S/S OF DISTRESS, DRESSINGS ON FEET ARE CLEAN, DRY AND INTACT CONTINUE WITH PLAN OF CARE
[2018-12-14 09:10] VITALS: BP 136/58
[2018-12-14 13:35] VITALS: BP 147/61
--- NOTE | 2018-12-14 15:02 | NUR ---
CHANGED PT DRESSING ON FEET ORDRED, PT STATED HE DID NOT KNOW INCISION WAS LONG AND DEEP IT IS AND QUESTIONED ON WHY IT WAS NOT SEWN BACK UP. ADVISED PT TO SPEAK TO DR IN REGARDS TO CONCERNS ABOUT I& D AND THAT IT MAY BE DUE TO INFECTION THAT WAS IN THE WOUND. NO OTHER NEEDS VOICED, CONTINUE WITH PLANOF CARE
[2018-12-14 16:48] VITALS: BP 178/61
--- NOTE | 2018-12-14 17:19 | NUR ---
I have reviewed this patient and I concur with the Shift Assessment completed by the Licensed Practical Nurse today this shift.
--- NOTE | 2018-12-14 19:15 | NUR ---
RECEIVED CARE FROM DAY NURSE. LYING IN BED WATCHING TV. REPORTS NO NEEDS AT THIS TIME. CALL LIGHT AT SIDE. IV SL TO RIGHT PATENT IV.
--- NOTE | 2018-12-14 19:19 | MORECARE ---
CASE MANAGEMENT DISCHARGE SUMMARY PATIENT: CONSTANTINO CHAVEZ UNIT: [id number] ADM DATE: 12/09/18 AGE: 68 : 51 SEX: M ROOM/BED: D.2226 AUTHOR: AKILAH,DOC PHYSICIAN: REFERRING PHYSICIAN: ALINA BANERJEE MD DATE OF SERVICE: 12/14/18 Discharge Plan Patient Name: CONSTANTINO CHAVEZ Facility: [facility]:[place] : 1950 Planned Disposition: Home with Home Health Anticipated Discharge Date: Discharge Date: Expected LOS: Initial Reviewer: [email or web address] Initial Review Date: 12/09/2018 Generated: 12/14/18 8:19 pm Comments DCP- Discharge Planning Updated by [email or web address]: Sierra Burden on 12/14/18 6:[address] LATE ENTRY 1045 CM SPOKE WITH THE PRIMARY NURSE, MIGNON, REGARDING TEACHING NEEDS AND DISCHARGE PLANS. INITIAL REFERRAL HAS BEEN FAXED TO [facility]. NURSE TO FOLLOW UP WITH TEACHING PER MD ORDER. PLAN FOR 12/15/18 DISCHARGE, WILL PROVIDE DRESSINGS SUPPLIES AT DISCHARGE FOR HOME HEALTH. DCP- Discharge Planning Updated by [email or web address]: Marlene Moss on 12/13/18 11:[address] Patient Name: CONSTANTINO CHAVEZ Admission Status: ER Accout number: [id number] Admission Date: 12-09-2018 : 1950 Admission Diagnosis:ANEMIA, UNSPECIFIED Attending: ALINA BANERJEE Current LOS: 4 Anticipated DC Date: Planned Disposition: Home with Home Health Primary Insurance: MEDICARE A & B Discharge Planning Comments: CM met with patient to complete initial dc planning assessment. CM educated patient on the CM role and verbal consent given by patient to complete assessment. Patient lives at home alone. At discharge patient plans to return and feels this is a safe discharge. States he is completely independent with all ADL's and AIDL's. States he uses a cane only for ambulation. He states he does not have a glucometer. I told him to have Dr. Banerjee write a prescription for a glucometer and strips to check his blood sugar. I also informed him that he could purchase a glucometer at [facility] or [facility], voiced understanding. CM discussed availability of home health, rehab services, and medical equipment. He agrees to home health and [facility]CTOR HU[facility] form for [facility] signed. I called [facility] and spoke with Margot and clinical faxed. CM will continue to follow and will assist as needed with dc plans/needs. Osteopathic Neurologist: Marlene Moss DCPIA - Discharge Planning Initial Assessment Updated by [email or web address]: Marlene Moss on 12/13/18 11:52 am * Is the patient Alert and Oriented? Yes * How many steps to enter\exit or inside your home? 8w/rails/0 * PCP Dr. Banerjee * Pharmacy [facility] at [facility] * Preadmission Environment Home Alone * ADLs Independent * Equipment Cane * List name and contact numbers for known caregivers / representatives who currently or will assist patient after discharge: [facility] - [phone] * Verbal permission to speak to the caregivers and representatives has been obtained from the patient. Yes * Community resources currently utilized None * Additional services required to return to the preadmission environment? Yes * Can the patient safely return to the preadmission environment? Yes * Has this patient been hospitalized within the prior 30 days at any hospital? No Coverage Notice Reviewer: [email or web address] - Marlene Moss Notice Issued Date-Time: 12/13/2018 12:19 Notice Type: Patient Choice Letter Notice Delivered To: Patient Relationship to Patient: Manager Lean Name: Delivery Method: HAND - Hand Delivered Mary Days: Prior Verbal Notification: Recipient Understood Notice: Yes Recipient Signature: Yes Med Rec Note Co-signed by Attending: Coverage Notice Comment: [facility] FOR [facility] Last DP export: 12/13/18 11:16 am Patient Name: CONSTANTINO CHAVEZ Page 31579 at 1919 All edits/amendments must be made on the electronic document DICTATION DATE: 12/14/181917 HOME VISITOR HOME BASE HEAD START: VIJAY 12/14/181917 RPT#: [id number] DC DATE: STATUS: ADM IN [facility] [address] [place] [address] END OF REPORT
[2018-12-14 21:01] VITALS: BP 137/57
--- NOTE | 2018-12-14 21:30 | NUR ---
DRESSING ON RIGHT FOOT ON FLOOR. PT STATES IT FELL OFF. DOESNT WANT IT BACK ON AND STATES THAT IF IT IS DRY HE DOESNT WANT IT. SOCK GIVEN TO PUT ON TO PROTECT FOOT.
[2018-12-15 01:20] VITALS: BP 119/53
[2018-12-15 09:25] VITALS: BP 123/54
[2018-12-15] MEDS ORDERED: HYDROCODON-ACE1 EAC7 PO (09:32)
[2018-12-15 12:20] VITALS: BP 140/59
[2018-12-15] MEDS ORDERED: VIBRAMYCIN 100100 MG PO (12:46)
--- NOTE | 2018-12-15 13:31 | NUR ---
WENT OVER DC PAPERS WITH PT, ALL QUESTIONS ANSWERED, ADMINISTERED PRN PAIN MEDICATION NO OTHER NEEDS VOICED
--- NOTE | 2018-12-15 13:54 | MORECARE ---
CASE MANAGEMENT DISCHARGE SUMMARY PATIENT: CONSTANTINO CHAVEZ UNIT: [id number] ADM DATE: 12/09/18 AGE: 68 : 51 SEX: M ROOM/BED: D.2226 AUTHOR: AKILAH,DOC PHYSICIAN: REFERRING PHYSICIAN: ALINA BANERJEE MD DATE OF SERVICE: 12/15/18 Discharge Plan Patient Name: CONSTANTINO CHAVEZ Facility: [facility]:[place] : 1950 Planned Disposition: Home with Home Health Anticipated Discharge Date: 12/15/18 Discharge Date: Expected LOS: 6 Initial Reviewer: [id number] Initial Review Date: 12/09/2018 Generated: 12/15/18 2:54 pm Comments DCP- Discharge Planning Updated by [email or web address]: Sierra Burden on 12/14/18 6:[address] LATE ENTRY 1045 CM SPOKE WITH THE PRIMARY NURSE, MIGNON, REGARDING TEACHING NEEDS AND DISCHARGE PLANS. INITIAL REFERRAL HAS BEEN FAXED TO [facility]. NURSE TO FOLLOW UP WITH TEACHING PER MD ORDER. PLAN FOR 12/15/18 DISCHARGE, WILL PROVIDE DRESSINGS SUPPLIES AT DISCHARGE FOR HOME HEALTH. DCP- Discharge Planning Updated by [id number]: Marlene Moss on 12/13/18 11:[address] Patient Name: CONSTANTINO CHAVEZ Admission Status: ER Accout number: [id number] Admission Date: 12-09-2018 : 1950 Admission Diagnosis:ANEMIA, UNSPECIFIED Attending: ALINA BANERJEE Current LOS: 4 Anticipated DC Date: Planned Disposition: Home with Home Health Primary Insurance: MEDICARE A & B Discharge Planning Comments: CM met with patient to complete initial dc planning assessment. CM educated patient on the CM role and verbal consent given by patient to complete assessment. Patient lives at home alone. At discharge patient plans to return and feels this is a safe discharge. States he is completely independent with all ADL's and AIDL's. States he uses a cane only for ambulation. He states he does not have a glucometer. I told him to have Dr. Banerjee write a prescription for a glucometer and strips to check his blood sugar. I also informed him that he could purchase a glucometer at [facility] or [employer], voiced understanding. CM discussed availability of home health, rehab services, and medical equipment. He agrees to home health and VICTOR HUGO form for [place] signed. I called [facility] and spoke with Margot and clinical faxed. CM will continue to follow and will assist as needed with dc plans/needs. Heading Pinner: Marlene Moss DCPIA - Discharge Planning Initial Assessment Updated by [email or web address]: Marlene Moss on 12/13/18 11:52 am * Is the patient Alert and Oriented? Yes * How many steps to enter\exit or inside your home? 8w/rails/0 * PCP Dr. Banerjee * Pharmacy [facility] at [facility] * Preadmission Environment Home Alone * ADLs Independent * Equipment Cane * List name and contact numbers for known caregivers / representatives who currently or will assist patient after discharge: Jackie [facility] - [phone] * Verbal permission to speak to the caregivers and representatives has been obtained from the patient. Yes * Community resources currently utilized None * Additional services required to return to the preadmission environment? Yes * Can the patient safely return to the preadmission environment? Yes * Has this patient been hospitalized within the prior 30 days at any hospital? No Coverage Notice Reviewer: [id number] - Marlene Moss Notice Issued Date-Time: 12/13/2018 12:19 Notice Type: Patient Choice Letter Notice Delivered To: Patient Relationship to Patient: Critical Care Educator Name: Delivery Method: HAND - Hand Delivered Mary Days: Prior Verbal Notification: Recipient Understood Notice: Yes Recipient Signature: Yes Med Rec Note Co-signed by Attending: Coverage Notice Comment: [facility] FOR [facility] Last DP export: 12/14/18 6:19 pm Patient Name: CONSTANTINO CHAVEZ Page [id number] at 1354 All edits/amendments must be made on the electronic document DICTATION DATE: 12/15/18 1354 ASSOCIATE MANAGER: VIJAY 12/15/18 1354 RPT#: [id number] DC DATE: STATUS: ADM IN [facility] [address] [place] [address] END OF REPORT
--- NOTE | 2018-12-15 14:10 | MORECARE ---
CASE MANAGEMENT DISCHARGE SUMMARY PATIENT: CONSTANTINO CHAVEZ UNIT: [id number] ADM DATE: 12/09/18 AGE: 68 : 51 SEX: M ROOM/BED: D.2226 AUTHOR: SUZIE ISBELL PHYSICIAN: REFERRING PHYSICIAN: ALINA BANERJEE MD DATE OF SERVICE: 12/15/18 Discharge Plan Patient Name: CONSTANTINO CHAVEZ Facility: [facility]:[place] : 1950 Planned Disposition: Home with Home Health Anticipated Discharge Date: 12/15/18 Discharge Date: Expected LOS: 6 Initial Reviewer: [id number] Initial Review Date: 12/09/2018 Generated: 12/15/18 3:10 pm Comments DCP- Discharge Planning Updated by [id number]: Sierra Burden on 12/15/18 1:[address] PATIENT FOR DISCHARGE TO HOME TODAY. CM AND EXPLAINED AND SERVED DISCHARGE IMM. HE HAD NO QUESTIONS OR CONCERNS. INFORMED THE PATIENT I WOULD BE FAXING HIS DISCHARGE INFORMATION TO [facility]. HE HAD NO QUESTIONS AND VOICED NO CONCERNS. CM ADVISED HIM TO HAVE NURSES PACKING HIS DRESSING SUPPLIES AT THE BEDSIDE. SPOKE W/ PRIMARY 12/14 AND THIS PM. TC TO [place] AT HOME. LEFT MESSAGE. REC CB FROM BR[facility], SPEECH PROFESSOR NURSE. ADVISED OF DISCHARGE. FAXED LABS, PROGRESS NOTES FOR FP, HEMATOLOGY AND SURGERY, D/C MED LIST AND INSTRUCTIONS. DCP- Discharge Planning Updated by [id number]: Sierra Burden on 12/14/18 6:[address] LATE ENTRY 1045 CM SPOKE WITH THE PRIMARY NURSE, MIGNON, REGARDING TEACHING NEEDS AND DISCHARGE PLANS. INITIAL REFERRAL HAS BEEN FAXED TO [facility]. NURSE TO FOLLOW UP WITH TEACHING PER MD ORDER. PLAN FOR 12/15/18 DISCHARGE, WILL PROVIDE DRESSINGS SUPPLIES AT DISCHARGE FOR HOME HEALTH. DCP- Discharge Planning Updated by [email or web address]: Marlene Moss on 12/13/18 11:[address] Patient Name: CONSTANTINO CHAVEZ Admission Status: ER Accout number: [id number] Admission Date: 12-09-2018 : 1950 Admission Diagnosis:ANEMIA, UNSPECIFIED Attending: ALINA BANERJEE Current LOS: 4 Anticipated DC Date: Planned Disposition: Home with Home Health Primary Insurance: MEDICARE A & B Discharge Planning Comments: CM met with patient to complete initial dc planning assessment. CM educated patient on the CM role and verbal consent given by patient to complete assessment. Patient lives at home alone. At discharge patient plans to return and feels this is a safe discharge. States he is completely independent with all ADL's and AIDL's. States he uses a cane only for ambulation. He states he does not have a glucometer. I told him to have Dr. Banerjee write a prescription for a glucometer and strips to check his blood sugar. I also informed him that he could purchase a glucometer at [facility] or [facility], voiced understanding. CM discussed availability of home health, rehab services, and medical equipment. He agrees to home health and [facility]CTOR HUGO form for [facility]. I called [facility] and spoke with Margot and clinical faxed. CM will continue to follow and will assist as needed with dc plans/needs. Valance Cutter: Marlene Moss DCPIA - Discharge Planning Initial Assessment Updated by [email or web address]: Marlene Moss on 12/13/18 11:52 am * Is the patient Alert and Oriented? Yes * How many steps to enter\exit or inside your home? 8w/rails/0 * PCP Dr. Banerjee * Pharmacy [facility] at [facility] * Preadmission Environment Home Alone * ADLs Independent * Equipment Cane * List name and contact numbers for known caregivers / representatives who currently or will assist patient after discharge: Jackie - [place] - [phone] * Verbal permission to speak to the caregivers and representatives has been obtained from the patient. Yes * Community resources currently utilized None * Additional services required to return to the preadmission environment? Yes * Can the patient safely return to the preadmission environment? Yes * Has this patient been hospitalized within the prior 30 days at any hospital? No Coverage Notice Reviewer: [id number] - Marlene Moss Notice Issued Date-Time: 12/13/2018 12:19 Notice Type: Patient Choice Letter Notice Delivered To: Patient Relationship to Patient: Account Development Representative Name: Delivery Method: HAND - Hand Delivered Mary Days: Prior Verbal Notification: Recipient Understood Notice: Yes Recipient Signature: Yes Med Rec Note Co-signed by Attending: Coverage Notice Comment: [facility] Reviewer: [id number] - Sierra Burden Notice Issued Date-Time: 12/15/2018 13:05 Notice Type: IM Discharge Notice Notice Delivered To: Patient Relationship to Patient: Self Account Development Representative Name: Delivery Method: HAND - Hand Delivered Mary Days: Prior Verbal Notification: Recipient Understood Notice: Yes Recipient Signature: Yes Med Rec Note Co-signed by Attending: Coverage Notice Comment: CM DISCUSSED AND SERVED DISCHARGE IMM. VOICED NO CONCERNS. STATED HE UNDERSTOOD. COPY TO THE PATIENT. COPY TO THE HARD COPY CHART. Last DP export: 12/15/18 12:54 pm Patient Name: CONSTANTINO CHAVEZ Page [id number] at 1410 All edits/amendments must be made on the electronic document DICTATION DATE: 12/15/181408 ICT BUSINESS ANALYST: VIJAY 12/15/181408 RPT#: [id number] DC DATE: STATUS: ADM IN [facility] [address] [place] [address] END OF REPORT
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
--- NOTE | 2018-12-20 14:05 | MORECARE ---
CASE MANAGEMENT DISCHARGE SUMMARY PATIENT: CONSTANTINO CHAVEZ UNIT: [id number] ADM DATE: 12/09/18 AGE: 68 : 51 SEX: M ROOM/BED: D.2226 AUTHOR: AKILAH,DOC PHYSICIAN: REFERRING PHYSICIAN: ALINA BANERJEE MD DATE OF SERVICE: 12/20/18 Discharge Plan Patient Name: CONSTANTINO CHAVEZ Facility: [facility]:[place] : 1950 Planned Disposition: Home with Home Health Anticipated Discharge Date: 12/15/18 Discharge Date: 12/15/2018 Expected LOS: 6 Initial Reviewer: [id number] Initial Review Date: 12/09/2018 Generated: 12/20/18 3:05 pm Comments DCP- Discharge Planning Updated by [email or web address]: Sierra Burden on 12/15/18 1:[address] PATIENT FOR DISCHARGE TO HOME TODAY. CM AND EXPLAINED AND SERVED DISCHARGE IMM. HE HAD NO QUESTIONS OR CONCERNS. INFORMED THE PATIENT I WOULD BE FAXING HIS DISCHARGE INFORMATION TO [facility]. HE HAD NO QUESTIONS AND VOICED NO CONCERNS. CM ADVISED HIM TO HAVE NURSES PACKING HIS DRESSING SUPPLIES AT THE BEDSIDE. SPOKE W/ PRIMARY 12/14 AND THIS PM. TC TO [place] AT HOME. LEFT MESSAGE. REC CB FROM [facility], TOOLING ENGINEER NURSE. ADVISED OF DISCHARGE. FAXED LABS, PROGRESS NOTES FOR FP, HEMATOLOGY AND SURGERY, D/C MED LIST AND INSTRUCTIONS. DCP- Discharge Planning Updated by [id number]: Sierra Burden on 12/14/18 6:[address] LATE ENTRY 1045 CM SPOKE WITH THE PRIMARY NURSE, MIGNON, REGARDING TEACHING NEEDS AND DISCHARGE PLANS. INITIAL REFERRAL HAS BEEN FAXED TO [facility]. NURSE TO FOLLOW UP WITH TEACHING PER MD ORDER. PLAN FOR 12/15/18 DISCHARGE, WILL PROVIDE DRESSINGS SUPPLIES AT DISCHARGE FOR HOME HEALTH. DCP- Discharge Planning Updated by [id number]: Marlene Moss on 12/13/18 11:[address] Patient Name: CONSTANTINO CHAVEZ Admission Status: ER Accout number: [id number] Admission Date: 12-09-2018 : 1950 Admission Diagnosis:ANEMIA, UNSPECIFIED Attending: ALINA BANERJEE Current LOS: 4 Anticipated DC Date: Planned Disposition: Home with Home Health Primary Insurance: MEDICARE A & B Discharge Planning Comments: CM met with patient to complete initial dc planning assessment. CM educated patient on the CM role and verbal consent given by patient to complete assessment. Patient lives at home alone. At discharge patient plans to return and feels this is a safe discharge. States he is completely independent with all ADL's and AIDL's. States he uses a cane only for ambulation. He states he does not have a glucometer. I told him to have Dr. Banerjee write a prescription for a glucometer and strips to check his blood sugar. I also informed him that he could purchase a glucometer at [facility] or [facility], voiced understanding. CM discussed availability of home health, rehab services, and medical equipment. He agrees to home health and VICTOR HUGO form for [facility]. I called [facility] and spoke with Margot and clinical faxed. CM will continue to follow and will assist as needed with dc plans/needs. Speech Correction Consultant: aMrlene Moss DCPIA - Discharge Planning Initial Assessment Updated by [id number]: Marlene Moss on 12/13/18 11:52 am * Is the patient Alert and Oriented? Yes * How many steps to enter\exit or inside your home? 8w/rails/0 * PCP Dr. Banerjee * Pharmacy [facility] at [facility] * Preadmission Environment Home Alone * ADLs Independent * Equipment Cane * List name and contact numbers for known caregivers / representatives who currently or will assist patient after discharge: Jackie [facility] [facility] - [phone] * Verbal permission to speak to the caregivers and representatives has been obtained from the patient. Yes * Community resources currently utilized None * Additional services required to return to the preadmission environment? Yes * Can the patient safely return to the preadmission environment? Yes * Has this patient been hospitalized within the prior 30 days at any hospital? No Coverage Notice Reviewer: [id number] - Marlene Moss Notice Issued Date-Time: 12/13/2018 12:19 Notice Type: Patient Choice Letter Notice Delivered To: Patient Relationship to Patient: Mobile Paint Specialist Name: Delivery Method: HAND - Hand Delivered Mary Days: Prior Verbal Notification: Recipient Understood Notice: Yes Recipient Signature: Yes Med Rec Note Co-signed by Attending: Coverage Notice Comment: [facility] Reviewer: [id number] - Sierra Burden Notice Issued Date-Time: 12/15/2018 13:05 Notice Type: IM Discharge Notice Notice Delivered To: Patient Relationship to Patient: Self Mobile Paint Specialist Name: Delivery Method: HAND - Hand Delivered Mary Days: Prior Verbal Notification: Recipient Understood Notice: Yes Recipient Signature: Yes Med Rec Note Co-signed by Attending: Coverage Notice Comment: CM DISCUSSED AND SERVED DISCHARGE IMM. VOICED NO CONCERNS. STATED HE UNDERSTOOD. COPY TO THE PATIENT. COPY TO THE HARD COPY CHART. Last DP export: 12/15/18 1:10 pm Patient Name: CONSTANTINO CHAVEZ Page [id number] at 1405 All edits/amendments must be made on the electronic document DICTATION DATE: 12/20/181404 OFFICE WORKER: VIJAY 12/20/18 140 RPT#: [id number] DC DATE:12/15/18 STATUS: DIS IN [facility] [address] [place] [address] END OF REPORT
== END 2018-12-15 14:31 | disposition home health service (06) | DRG 982 ==
LOC: D.ER 17:09 → D.MS 22:17
PROVIDERS: Family Medicine; Orthopaedic Surgery; ADMIT Family Medicine; ATTEND Family Medicine
PROC: 0LBW0ZZ Excision of Left Foot Tendon, Open Approach (ICD-10-PCS; principal; 2018-12-10 14:00)
DX: E11.621 Type 2 diabetes mellitus with foot ulcer (principal); L97.429 Non-pressure chronic ulcer of left heel and midfoot with unspecified severity; L03.116 Cellulitis of left lower limb; D64.9 Anemia, unspecified; E78.5 Hyperlipidemia, unspecified; I25.10 Atherosclerotic heart disease of native coronary artery without angina pectoris; S96.012A Strain of muscle and tendon of long flexor muscle of toe at ankle and foot level, left foot, initial encounter

== ENCOUNTER → 2020-12-10 12:23 | Outpatient (CLI) | payer MEDICARE ==
[2018-12-10 12:20] VITALS: BMI 25.1
[~2020-12-10 12:23] MED LIST changes: +VIBRAMYCIN 100100 MG PO
== END | disposition home or self-care (01) ==
LOC: D.MRI 12:23
PROVIDERS: ATTEND Family Medicine
DX: E11.621 Type 2 diabetes mellitus with foot ulcer (principal); M86.171 Other acute osteomyelitis, right ankle and foot

== ENCOUNTER → 2021-01-14 08:00 | Outpatient (CLI) | payer MEDICARE ==
[2018-12-10 12:20] VITALS: BMI 25.1
[~2021-01-14 08:00] MED LIST changes: +BASAGLAR K100 UNIT/1 SC; +GABAPENTIN300 MG PO; +NOVOLOG100 UNIT/1 SC; +ULTRAM50 MG PO
[2021-01-14 12:04] LABS: BASOPHILS 0.3 % (0-2); EOSINOPHILS 0.5 % (0-7); HEMATOCRIT 28.8 % (42.0-54.0); HEMOGLOBIN 9.1 g/dL (13.5-17.5); LYMPHOCYTES 22.7 % (15-50); MCHC 31.6 g/dL (31.0-37.0); MCV 72.8 fL (80.0-100.0); MEAN PLATELET VOLUME 8.2 fL (7.4-10.4); MONOCYTES 7.2 % (2-11); NEUTROPHILS 69.3 % (40-80); PLATELET COUNT 220 10x3/uL (130-400); RBC 3.96 10x6/uL (4.20-6.10); RDW 16.3 % (11.5-14.5); WBC 7.1 10x3/uL (4.8-10.8)
[2021-01-14 12:09] LABS: CALC OSMOLALITY 277 mosm/kg (275-300); CALCIUM 8.6 mg/dL (8.5-10.1); CARBON DIOXIDE 30.6 mmol/L (21.0-32.0); CHLORIDE - SERUM 102 mmol/L (98-107); GLUCOSE 139 mg/dL (74-106); SODIUM 137 mmol/L (136-145); UREA NITROGEN 17 mg/dL (7-18); eGFR NON AFRICAN AMERICAN 79 mL/min (90-120)
== END | disposition home or self-care (01) ==
LOC: D.PAN 08:00 → EDSTATUS 01-18 11:00 → D.SDCHOLD 01-18 11:00
PROVIDERS: Anesthesiology; ATTEND Orthopaedic Surgery
DX: M86.9 Osteomyelitis, unspecified (principal)